=== PATIENT | female | born 1975 | race Caucasian/White ===

== ENCOUNTER 2019-04-28 12:08 | Emergency (ER) | payer MEDICAID, OTHER ==
[~2019-04-28] VITALS: Ht 170.2 cm; Wt 81.8 kg
[~2019-04-28 12:08] MED LIST: OLAN5TAB2 PO
[2019-04-28 13:28] VITALS: BP 123/77
[2019-04-28] MEDS ORDERED: OLANZapine 5 MG TABLET PO ONE (13:45)
[2019-04-28] MEDS ORDERED: OLAN10TA3 PO (13:49)
== END 2019-04-28 14:23 | disposition home or self-care (01) ==
LOC: EMS 12:09
DX: F20.9 Schizophrenia, unspecified (principal); F17.210 Nicotine dependence, cigarettes, uncomplicated; F31.9 Bipolar disorder, unspecified; Z76.0 Encounter for issue of repeat prescription

== ENCOUNTER 2019-07-26 19:00 | Inpatient (IN) | payer MEDICAID ==
[~2019-07-26] VITALS: Ht 170.2 cm; Wt 92.3 kg
[~2019-07-26 19:00] MED LIST changes: +OLAN10TA3 PO; -OLAN5TAB2 PO
[2019-07-26 21:00] VITALS: BP 125/71
[2019-07-26] MEDS ORDERED: LORazepam 2 MG TABLET PO PRN (21:15)
[2019-07-26] MEDS ORDERED: ZOLPIDEM TARTRATE 10 MG TABLET PO PRN (21:15)
[2019-07-26] MEDS ORDERED: HALOPERIDOL 5 MG TABLET PO PRN (21:15)
[2019-07-26 21:41] VITALS: BP 129/82
[2019-07-27 06:01] VITALS: BP 131/77
[2019-07-27 08:40] VITALS: BP 126/82
[2019-07-27] MEDS: OLANZapine 7.5 MG TABLET PO SCH (20:24)
[2019-07-28 08:20] VITALS: BP 117/66
[2019-07-28 16:12] VITALS: BP 128/72
[2019-07-28] MEDS: OLANZapine 7.5 MG TABLET PO SCH (20:29)
[2019-07-29 04:58] VITALS: BP 115/65
[2019-07-29 08:17] LABS: APPEARANCE,URINE CLOUDY (CLEAR); BILIRUBIN,URINE NEGATIVE (NEGATIVE); GLUCOSE, URINE (UA) NEGATIVE (NEGATIVE); KETONES,URINE NEGATIVE (NEGATIVE); LEUKOCYTE ESTERASE ,URINE NEGATIVE (NEGATIVE); NITRATE,URINE POSITIVE (NEGATIVE); OCCULT BLOOD,URINE NEGATIVE (NEGATIVE); PROTEIN,URINE NEGATIVE (NEGATIVE); UROBILINOGEN,URINE 0.2 mg/dL (<=1.0)
[2019-07-29 08:19] LABS: BASOPHILS % (AUTO) 0.2 % (0.0-2.0); EOSINOPHILS % (AUTO) 7.1 % (1.0-6.0); HEMATOCRIT 43.3 % (36-46); LYMPHOCYTES # (AUTO) 2.1 K/uL (1.0-4.8); LYMPHOCYTES % (AUTO) 18.1 % (22.0-44.0); MEAN CORPUSCULAR HEMOGLOBIN 30.1 pg (26.0-34.0); MEAN CORPUSCULAR HGB CONC 32.4 G/dL (31.0-37.0); MEAN CORPUSCULAR VOLUME 93 fL (80-100); MONOCYTES # (AUTO) 0.8 K/uL (0.1-1.0); MONOCYTES % (AUTO) 6.6 % (2.0-9.0); NEUTROPHILS # (AUTO) 7.9 K/uL (1.8-7.7); PLATELET COUNT (AUTO) 327 K/uL (150-450); RED BLOOD CELL COUNT(AUTO) 4.66 MIL/uL (4.00-5.20); RED CELL DISTRIBUTION WIDTH 13.4 % (11.5-14.5)
[2019-07-29 08:23] VITALS: BP 111/16
[2019-07-29 08:25] LABS: AMPHET/METH SCREEN,URINE NEGATIVE (NEGATIVE); BARBITURATE SCREEN, URINE NEGATIVE (NEGATIVE); BENZODIAZEPINES SCREEN,URINE NEGATIVE (NEGATIVE); CANNABINOID SCREEN,URINE NEGATIVE (NEGATIVE); COCAINE SCREEN,URINE NEGATIVE (NEGATIVE); METHADONE SCREEN, URINE NEGATIVE (NEGATIVE); OPIATE SCREEN,URINE NEGATIVE (NEGATIVE); PHENCYCLIDINE SCREEN,URINE NEGATIVE (NEGATIVE)
[2019-07-29 08:27] LABS: BACTERIA,URINE Moderate /HPF (None Seen); CALCIUM OXALATE CRYSTALS,UR Few /LPF (None Seen); RBC,URINE 0-2 /HPF (0-2); SQUAMOUS EPITHELIAL CELL,UR Few /LPF (None Seen)
[2019-07-29 08:57] LABS: ALANINE AMINOTRANSFERASE 19 U/L (12-78); ALBUMIN 3.2 g/dL (3.4-5.0); ALKALINE PHOSPHATASE 72 U/L (46-116); ANION GAP 5 mmol/L (8-16); ASPARTATE AMINOTRANSFERASE 10 U/L (15-37); BILIRUBIN,TOTAL 0.1 mg/dL (0.1-1.0); CALCIUM, TOTAL 8.9 mg/dL (8.8-10.5); CARBON DIOXIDE 29 mmol/L (22-29); CHLORIDE 105 mmol/L (98-107); CHOL/HDL RATIO 3.2 (3.9-5.7); CHOLESTEROL 96 mg/dL (131-200); CREATININE 0.72 mg/dL (0.60-1.30); FREE T4 (FREE THYROXINE) 1.24 ng/dL (0.76-1.46); GLOMERULAR FILTR. RATE CALC > 60 mL/min (>60); GLUCOSE,RANDOM 79 mg/dL (70-110); HCG,QUANTITATIVE < 1 mIU/mL (0-6); HDL CHOLESTEROL 30 mg/dL (40-60); LDL CHOL (CALC.) 52 mg/dL (0-130); SODIUM SERUM 139 mmol/L (136-145); THYROID STIMULATING HORMONE 1.69 uIU/mL (0.36-3.74); TOTAL PROTEIN, SERUM 6.3 g/dL (6.4-8.2); TRIGLYCERIDES 70 mg/dL (15-150); UREA NITROGEN, BLOOD 11 mg/dL (7-18)
[2019-07-29] MEDS: ARIPiprazole 10 MG TABLET PO SCH (09:00)
[2019-07-29 16:33] VITALS: BP 100/65
[2019-07-30 04:13] VITALS: BP 102/62
[2019-07-30] MEDS ORDERED: ARIP15TA2 PO (06:35)
[2019-07-30 08:25] VITALS: BP 118/72
[2019-07-30] MEDS: ARIPiprazole 10 MG TABLET PO SCH ×2 (08:27→09:30)
[2019-07-30] MEDS: CIPROFLOXACIN HCL 500 MG TABLET PO SCH ×2 (09:30→17:02)
[2019-07-30 16:46] VITALS: BP 107/60
[2019-07-31 02:58] VITALS: BP 120/63
[2019-07-31] MEDS: CIPROFLOXACIN HCL 500 MG TABLET PO SCH ×2 (08:52→17:23)
[2019-07-31] MEDS: ARIPiprazole 10 MG TABLET PO SCH (08:52)
[2019-07-31 17:01] VITALS: BP 108/61
[2019-08-01 05:06] VITALS: BP 101/68
[2019-08-01] MEDS: CIPROFLOXACIN HCL 500 MG TABLET PO SCH ×2 (08:25→17:00)
[2019-08-01] MEDS: ARIPiprazole 10 MG TABLET PO SCH (08:25)
[2019-08-01 13:59] VITALS: BP 111/73
[2019-08-02 05:19] VITALS: BP 100/72
[2019-08-02] MEDS: CIPROFLOXACIN HCL 500 MG TABLET PO SCH ×2 (08:58→16:55)
[2019-08-02] MEDS: ARIPiprazole 10 MG TABLET PO SCH (08:58)
[2019-08-03 05:07] VITALS: BP 120/72
[2019-08-03] MEDS: ARIPiprazole 10 MG TABLET PO SCH (08:28)
[2019-08-03] MEDS: CIPROFLOXACIN HCL 500 MG TABLET PO SCH ×2 (08:28→16:10)
[2019-08-03] MEDS ORDERED: ARIP10TA8 PO (14:14)
[2019-08-03] MEDS ORDERED: CIPROFLOXACIN HCL 500 MG TABLET PO ONE (14:15)
[2019-08-03 16:19] VITALS: BP 114/79
== END 2019-08-03 16:35 | disposition home or self-care (01) | DRG 750 ==
LOC: B3A 21:19
PROVIDERS: ADMIT Psychiatry & Neurology Psychiatry; ATTEND Psychiatry & Neurology Psychiatry
DX: F20.0 Paranoid schizophrenia (principal); Z59.0 Homelessness; E03.9 Hypothyroidism, unspecified; J45.909 Unspecified asthma, uncomplicated; K21.9 Gastro-esophageal reflux disease without esophagitis
CPT/HCPCS: 80307; 84439; 84443; 87086

== ENCOUNTER 2019-08-04 23:38 | Emergency (ER) | payer MEDICAID, OTHER ==
[~2019-08-04] VITALS: Ht 165.1 cm; Wt 72.7 kg
[~2019-08-04 23:38] MED LIST changes: +ARIP10TA8 PO; +ARIP15TA2 PO
[2019-08-05 01:11] LABS: BASOPHILS % (AUTO) 0.4 % (0.0-2.0); EOSINOPHILS % (AUTO) 3.2 % (1.0-6.0); HEMATOCRIT 44.1 % (36-46); HEMOGLOBIN 14.5 g/dL (12.0-16.0); LYMPHOCYTES # (AUTO) 2.3 K/uL (1.0-4.8); LYMPHOCYTES % (AUTO) 14.8 % (22.0-44.0); MEAN CORPUSCULAR HEMOGLOBIN 30.4 pg (26.0-34.0); MEAN CORPUSCULAR VOLUME 92 fL (80-100); MONOCYTES # (AUTO) 1.4 K/uL (0.1-1.0); MONOCYTES % (AUTO) 9.1 % (2.0-9.0); NEUTROPHILS # (AUTO) 11.5 K/uL (1.8-7.7); NEUTROPHILS % (AUTO) 72.5 % (40.0-70.0); PLATELET COUNT (AUTO) 343 K/uL (150-450); RED BLOOD CELL COUNT(AUTO) 4.79 MIL/uL (4.00-5.20); RED CELL DISTRIBUTION WIDTH 13.4 % (11.5-14.5)
[2019-08-05 01:20] LABS: ANION GAP 10 mmol/L (8-16); CALCIUM, TOTAL 9.4 mg/dL (8.8-10.5); CARBON DIOXIDE 27 mmol/L (22-29); CHLORIDE 101 mmol/L (98-107); CREATININE 0.75 mg/dL (0.60-1.30); GLOMERULAR FILTR. RATE CALC > 60 mL/min (>60); GLUCOSE,RANDOM 98 mg/dL (70-110); POTASSIUM 3.5 mmol/L (3.5-5.1); SODIUM SERUM 138 mmol/L (136-145); UREA NITROGEN, BLOOD 12 mg/dL (7-18)
[2019-08-05 01:31] LABS: ALANINE AMINOTRANSFERASE 51 U/L (12-78); ALBUMIN 4.1 g/dL (3.4-5.0); ALKALINE PHOSPHATASE 85 U/L (46-116); ASPARTATE AMINOTRANSFERASE 40 U/L (15-37); BILIRUBIN,TOTAL 0.7 mg/dL (0.1-1.0); HCG,QUANTITATIVE 1 mIU/mL (0-6); TOTAL PROTEIN, SERUM 8.1 g/dL (6.4-8.2)
[2019-08-05] MEDS ORDERED: ACETAMINOPHEN 500 MG TABLET PO ONE (01:45)
[2019-08-05 01:47] LABS: AMPHET/METH SCREEN,URINE NEGATIVE (NEGATIVE); BARBITURATE SCREEN, URINE NEGATIVE (NEGATIVE); BENZODIAZEPINES SCREEN,URINE NEGATIVE (NEGATIVE); CANNABINOID SCREEN,URINE NEGATIVE (NEGATIVE); COCAINE SCREEN,URINE NEGATIVE (NEGATIVE); METHADONE SCREEN, URINE NEGATIVE (NEGATIVE); OPIATE SCREEN,URINE NEGATIVE (NEGATIVE); PHENCYCLIDINE SCREEN,URINE NEGATIVE (NEGATIVE)
[2019-08-05 02:50] VITALS: BP 121/70
== END 2019-08-05 02:52 | disposition home or self-care (01) ==
LOC: EMS 23:40
DX: M54.5 Low back pain (principal); F31.9 Bipolar disorder, unspecified; F20.9 Schizophrenia, unspecified; F17.210 Nicotine dependence, cigarettes, uncomplicated
CPT/HCPCS: 36415; 80053; 80307; 84702; 85025; 99283; G0480

== ENCOUNTER 2020-04-18 11:08 | Inpatient (IN) | payer MEDICAID, OTHER ==
[~2020-04-18] VITALS: Ht 170.2 cm; Wt 91.3 kg
[2020-04-18 14:08] LABS: AMPHET/METH SCREEN,URINE NEGATIVE (NEGATIVE); BARBITURATE SCREEN, URINE NEGATIVE (NEGATIVE); BENZODIAZEPINES SCREEN,URINE NEGATIVE (NEGATIVE); CANNABINOID SCREEN,URINE NEGATIVE (NEGATIVE); COCAINE SCREEN,URINE NEGATIVE (NEGATIVE); METHADONE SCREEN, URINE NEGATIVE (NEGATIVE); OPIATE SCREEN,URINE NEGATIVE (NEGATIVE)
[2020-04-18 14:10] LABS: PHENCYCLIDINE SCREEN,URINE NEGATIVE (NEGATIVE)
[2020-04-18 15:54] LABS: BASOPHILS % (AUTO) 0.3 % (0.0-2.0); EOSINOPHILS % (AUTO) 1.6 % (1.0-6.0); HEMATOCRIT 38.6 % (36-46); HEMOGLOBIN 12.5 g/dL (12.0-16.0); LYMPHOCYTES # (AUTO) 1.3 K/uL (1.0-4.8); LYMPHOCYTES % (AUTO) 9.7 % (22.0-44.0); MEAN CORPUSCULAR HEMOGLOBIN 30.6 pg (26.0-34.0); MEAN CORPUSCULAR HGB CONC 32.5 G/dL (31.0-37.0); MEAN CORPUSCULAR VOLUME 94 fL (80-100); MONOCYTES # (AUTO) 0.8 K/uL (0.1-1.0); NEUTROPHILS # (AUTO) 11.2 K/uL (1.8-7.7); NEUTROPHILS % (AUTO) 82.4 % (40.0-70.0); PLATELET COUNT (AUTO) 276 K/uL (150-450); RED BLOOD CELL COUNT(AUTO) 4.09 MIL/uL (4.00-5.20); RED CELL DISTRIBUTION WIDTH 13.8 % (11.5-14.5)
[2020-04-18 16:19] LABS: ANION GAP 9 mmol/L (8-16); CALCIUM, TOTAL 8.7 mg/dL (8.8-10.5); CARBON DIOXIDE 24 mmol/L (22-29); CHLORIDE 105 mmol/L (98-107); CREATININE 0.65 mg/dL (0.60-1.30); GLOMERULAR FILTR. RATE CALC > 60 mL/min (>60); GLUCOSE,RANDOM 98 mg/dL (70-110); POTASSIUM 3.9 mmol/L (3.5-5.1); SODIUM SERUM 138 mmol/L (136-145); UREA NITROGEN, BLOOD 14 mg/dL (7-18)
[2020-04-18 16:24] LABS: APPEARANCE,URINE CLOUDY (CLEAR); BILIRUBIN,URINE NEGATIVE (NEGATIVE); GLUCOSE, URINE (UA) NEGATIVE (NEGATIVE); KETONES,URINE NEGATIVE (NEGATIVE); LEUKOCYTE ESTERASE ,URINE LARGE (NEGATIVE); NITRATE,URINE NEGATIVE (NEGATIVE); OCCULT BLOOD,URINE LARGE (NEGATIVE); PROTEIN,URINE NEGATIVE (NEGATIVE); UROBILINOGEN,URINE 0.2 mg/dL (<=1.0)
[2020-04-18 16:26] LABS: ALANINE AMINOTRANSFERASE 24 U/L (12-78); ALBUMIN 3.7 g/dL (3.4-5.0); ALKALINE PHOSPHATASE 77 U/L (46-116); ASPARTATE AMINOTRANSFERASE 13 U/L (15-37); BILIRUBIN,TOTAL 0.3 mg/dL (0.1-1.0); TOTAL PROTEIN, SERUM 7.5 g/dL (6.4-8.2)
[2020-04-18 16:31] LABS: WBC,URINE >100 /HPF (0-5)
[2020-04-18 16:32] LABS: BACTERIA,URINE Many /HPF (None Seen)
[2020-04-18 16:33] LABS: SQUAMOUS EPITHELIAL CELL,UR Moderate /LPF (None Seen)
[2020-04-18] MEDS ORDERED: CEPHALEXIN MONOHYDRATE 500 MG CAPSULE PO ONE (16:45)
[2020-04-18] MEDS ORDERED: ZOLPIDEM TARTRATE 10 MG TABLET PO PRN (17:00)
[2020-04-18] MEDS ORDERED: HALOPERIDOL 5 MG TABLET PO PRN (17:00)
[2020-04-18 17:19] LABS: COVID AG,FIA SOURCE NASOPHARYNGEAL
[2020-04-18] MEDS: HALOPERIDOL 5 MG TABLET PO SCH (20:59)
[2020-04-18] MEDS: LORazepam 2 MG TABLET PO PRN (21:00)
[2020-04-19 01:26] VITALS: BP 131/95
[2020-04-19] MEDS ORDERED: PNEUMOCOCCAL VACCINE POLYVALENT 0.5 ML VIAL [PPSV23] IM ONE (02:30)
[2020-04-19] MEDS ORDERED: INFLUENZA VIRUS VACCINE QVS 2020-21 (6MO+)/PF 60 MCG/0.5 ML SYRINGE IM ONE (02:30)
[2020-04-19] MEDS ORDERED: MAGNESIUM HYDROXIDE SUSPENSION 30 ML UDCUP PO PRN (09:00)
[2020-04-19] MEDS ORDERED: CloNIDine HCL 0.1 MG TABLET PO PRN (09:00)
[2020-04-19] MEDS ORDERED: MAG HYDROX/AL HYDROX/SIMETH ES 30 ML SUSPENSION UDCUP PO PRN (09:00)
[2020-04-19] MEDS ORDERED: BACITRACIN 28 GM OINTMENT TP PRN (09:00)
[2020-04-19] MEDS ORDERED: DOCUSATE SODIUM 100 MG CAPSULE PO PRN (09:00)
[2020-04-19] MEDS ORDERED: BENZOCAINE/MENTHOL LOZENGE PO PRN (09:00)
[2020-04-19] MEDS ORDERED: PETROLATUM,WHITE 28 GM JELLY TP PRN (09:00)
[2020-04-19] MEDS ORDERED: ONDANSETRON HCL 4 MG TABLET PO PRN (09:00)
[2020-04-19] MEDS ORDERED: LOPERAMIDE HCL 2 MG CAPSULE PO PRN (09:00)
[2020-04-19] MEDS ORDERED: ACETAMINOPHEN 325 MG TABLET PO PRN (09:00)
[2020-04-19] MEDS ORDERED: IBUPROFEN 600 MG TABLET PO PRN (09:00)
[2020-04-19] MEDS ORDERED: OMEPRAZOLE 20 MG CAPSULE PO PRN (09:00)
[2020-04-19] MEDS ORDERED: ALBUTEROL SULFATE HFA 90 MCG/PUFF 8 GM INHALER IH PRN (09:00)
[2020-04-19] MEDS: CEPHALEXIN MONOHYDRATE 500 MG CAPSULE PO SCH ×3 (12:01→16:09)
[2020-04-19] MEDS: LORazepam 2 MG TABLET PO PRN (12:21)
[2020-04-19 12:36] VITALS: BP 127/76
[2020-04-19 16:22] VITALS: BP 124/78
[2020-04-19] MEDS: HALOPERIDOL 5 MG TABLET PO SCH (20:21)
[2020-04-20 00:05] VITALS: BP 120/76
[2020-04-20 08:04] VITALS: BP 111/72
[2020-04-20] MEDS: CEPHALEXIN MONOHYDRATE 500 MG CAPSULE PO SCH ×3 (08:17→16:12)
[2020-04-20] MEDS: LORazepam 2 MG TABLET PO PRN ×2 (08:17→13:15)
[2020-04-20 16:04] VITALS: BP 126/65
[2020-04-20] MEDS: HALOPERIDOL 5 MG TABLET PO SCH (20:35)
[2020-04-21 00:40] VITALS: BP 120/72
[2020-04-21 08:00] VITALS: BP 108/63
[2020-04-21] MEDS: CEPHALEXIN MONOHYDRATE 500 MG CAPSULE PO SCH ×3 (08:05→15:48)
[2020-04-21] MEDS: LORazepam 2 MG TABLET PO PRN (08:05)
[2020-04-21] MEDS ORDERED: NICOTINE 21 MG/24 HOUR PATCH TD SCH (09:00)
[2020-04-21 16:10] VITALS: BP 130/78
[2020-04-21] MEDS ORDERED: HALO5TAB2 PO (17:02)
[2020-04-21] MEDS ORDERED: CEPH-582 PO (17:03)
== END 2020-04-21 17:36 | disposition home or self-care (01) | DRG 750 ==
LOC: EMS 11:08 → B3A 16:51
PROVIDERS: ADMIT Psychiatry & Neurology Psychiatry; ATTEND Psychiatry & Neurology Psychiatry
PROC: 3E0234Z Introduction of Serum, Toxoid and Vaccine into Muscle, Percutaneous Approach (ICD-10-PCS; principal; 2020-04-19)
PROC: 3E02340 Introduction of Influenza Vaccine into Muscle, Percutaneous Approach (ICD-10-PCS; 2020-04-19)
DX: F20.0 Paranoid schizophrenia (principal); R45.851 Suicidal ideations; Z59.0 Homelessness; F32.9 Major depressive disorder, single episode, unspecified; F41.0 Panic disorder [episodic paroxysmal anxiety]; N39.0 Urinary tract infection, site not specified; G47.00 Insomnia, unspecified; K59.00 Constipation, unspecified; F19.10 Other psychoactive substance abuse, uncomplicated; F17.210 Nicotine dependence, cigarettes, uncomplicated; F41.9 Anxiety disorder, unspecified; Z20.828 Contact with and (suspected) exposure to other viral communicable diseases; Z23 Encounter for immunization
CPT/HCPCS: 87070; 87426; 90686; G0480

== ENCOUNTER 2020-05-28 12:25 | Emergency (ER) | payer MEDICAID, OTHER ==
[~2020-05-28] VITALS: Ht 167.6 cm; Wt 59.1 kg
[~2020-05-28 12:25] MED LIST changes: -ARIP10TA8 PO; -ARIP15TA2 PO; +CEPH-582 PO; +HALO5TAB2 PO; -OLAN10TA3 PO
[2020-05-28 20:01] VITALS: BP 118/68
== END 2020-05-28 20:15 | disposition home or self-care (01) ==
LOC: EMS 12:25
DX: F20.9 Schizophrenia, unspecified (principal); Z59.0 Homelessness; Z20.822 Contact with and (suspected) exposure to COVID-19
CPT/HCPCS: 99283; U0003

== ENCOUNTER 2020-07-15 09:20 | Inpatient (IN) | payer MEDICAID, OTHER ==
[~2020-07-15] VITALS: Ht 167.6 cm; Wt 90.3 kg
[~2020-07-15 09:20] MED LIST changes: -CEPH-582 PO
[2020-07-15] MEDS ORDERED: HALOPERIDOL 5 MG TABLET PO ONE (10:00)
[2020-07-15] MEDS ORDERED: LORazepam 1 MG TABLET PO ONE (10:30)
[2020-07-15 10:36] LABS: BASOPHILS % (AUTO) 0.4 % (0.0-2.0); EOSINOPHILS % (AUTO) 4.1 % (1.0-6.0); HEMATOCRIT 40.8 % (36-46); HEMOGLOBIN 13.7 g/dL (12.0-16.0); LYMPHOCYTES # (AUTO) 1.5 K/uL (1.0-4.8); MEAN CORPUSCULAR HEMOGLOBIN 30.5 pg (26.0-34.0); MEAN CORPUSCULAR HGB CONC 33.5 G/dL (31.0-37.0); MEAN CORPUSCULAR VOLUME 91 fL (80-100); MONOCYTES % (AUTO) 6.6 % (2.0-9.0); NEUTROPHILS # (AUTO) 11.5 K/uL (1.8-7.7); NEUTROPHILS % (AUTO) 78.9 % (40.0-70.0); PLATELET COUNT (AUTO) 323 K/uL (150-450); RED BLOOD CELL COUNT(AUTO) 4.49 MIL/uL (4.00-5.20); RED CELL DISTRIBUTION WIDTH 13.9 % (11.5-14.5)
[2020-07-15 10:47] LABS: ANION GAP 12 mmol/L (8-16); CALCIUM, TOTAL 8.6 mg/dL (8.8-10.5); CARBON DIOXIDE 25 mmol/L (22-29); CHLORIDE 102 mmol/L (98-107); CREATININE 0.68 mg/dL (0.60-1.30); GLOMERULAR FILTR. RATE CALC > 60 mL/min (>60); GLUCOSE,RANDOM 96 mg/dL (70-110); POTASSIUM 3.4 mmol/L (3.5-5.1); SODIUM SERUM 139 mmol/L (136-145); UREA NITROGEN, BLOOD 16 mg/dL (7-18)
[2020-07-15 10:47] LABS: COVID AG,FIA SOURCE NASOPHARYNGEAL
[2020-07-15 10:53] LABS: ALANINE AMINOTRANSFERASE 28 U/L (12-78); ALBUMIN 3.9 g/dL (3.4-5.0); ALKALINE PHOSPHATASE 77 U/L (46-116); ASPARTATE AMINOTRANSFERASE 14 U/L (15-37); BILIRUBIN,TOTAL 0.4 mg/dL (0.1-1.0); TOTAL PROTEIN, SERUM 8.2 g/dL (6.4-8.2)
[2020-07-15 17:24] VITALS: BP 102/60
[2020-07-15] MEDS: HALOPERIDOL 5 MG TABLET PO SCH (20:16)
[2020-07-15] MEDS ORDERED: -PHARMACY VACCINE NOTE- MISC ONE (21:15)
[2020-07-16 06:11] VITALS: BP 106/62
[2020-07-16] MEDS ORDERED: DOCUSATE SODIUM 100 MG CAPSULE PO PRN (06:15)
[2020-07-16] MEDS ORDERED: ACETAMINOPHEN 325 MG TABLET PO PRN (06:15)
[2020-07-16] MEDS ORDERED: IBUPROFEN 600 MG TABLET PO PRN (06:15)
[2020-07-16] MEDS ORDERED: OMEPRAZOLE 20 MG CAPSULE PO PRN (06:15)
[2020-07-16] MEDS ORDERED: PETROLATUM,WHITE 28 GM JELLY TP PRN (06:15)
[2020-07-16] MEDS ORDERED: ONDANSETRON HCL 4 MG TABLET PO PRN (06:15)
[2020-07-16] MEDS ORDERED: ALBUTEROL SULFATE HFA 90 MCG/PUFF 8 GM INHALER IH PRN (06:15)
[2020-07-16] MEDS ORDERED: BENZOCAINE/MENTHOL LOZENGE PO PRN (06:15)
[2020-07-16] MEDS ORDERED: LOPERAMIDE HCL 2 MG CAPSULE PO PRN (06:15)
[2020-07-16] MEDS ORDERED: CloNIDine HCL 0.1 MG TABLET PO PRN (06:15)
[2020-07-16] MEDS ORDERED: BACITRACIN 28 GM OINTMENT TP PRN (06:15)
[2020-07-16] MEDS ORDERED: POTASSIUM CHLORIDE 20 MEQ ER TABLET PO ONE (06:15)
[2020-07-16] MEDS: ZINC OXIDE 16% PASTE 57 GM TUBE TP SCH ×2 (09:00→17:00)
[2020-07-16 10:26] VITALS: BP 129/66
[2020-07-16 16:36] VITALS: BP 103/64
[2020-07-16] MEDS: HALOPERIDOL 5 MG TABLET PO SCH (20:21)
[2020-07-17 00:38] VITALS: BP 104/62
[2020-07-17] MEDS: ZINC OXIDE 16% PASTE 57 GM TUBE TP SCH ×2 (08:49→16:32)
[2020-07-17] MEDS: HALOPERIDOL 5 MG TABLET PO SCH (20:17)
[2020-07-18 00:23] VITALS: BP 118/72
[2020-07-18] MEDS: MAG HYDROX/AL HYDROX/SIMETH ES 30 ML SUSPENSION UDCUP PO PRN ×2 (01:03→09:49)
[2020-07-18 08:22] VITALS: BP 107/72
[2020-07-18] MEDS: ZINC OXIDE 16% PASTE 57 GM TUBE TP SCH ×2 (09:28→16:38)
[2020-07-18 16:24] VITALS: BP 129/91
[2020-07-18] MEDS: LORazepam 2 MG TABLET PO PRN (16:38)
[2020-07-18] MEDS: HALOPERIDOL 5 MG TABLET PO PRN (16:39)
[2020-07-18] MEDS: MAGNESIUM HYDROXIDE SUSPENSION 30 ML UDCUP PO PRN (16:40)
[2020-07-18] MEDS: ZOLPIDEM TARTRATE 10 MG TABLET PO PRN (20:48)
[2020-07-18] MEDS: HALOPERIDOL 5 MG TABLET PO SCH (20:48)
[2020-07-19 06:20] VITALS: BP 107/59
[2020-07-19 09:09] LABS: BASOPHILS % (AUTO) 0.5 % (0.0-2.0); EOSINOPHILS % (AUTO) 7.7 % (1.0-6.0); HEMOGLOBIN 12.1 g/dL (12.0-16.0); LYMPHOCYTES # (AUTO) 1.3 K/uL (1.0-4.8); LYMPHOCYTES % (AUTO) 16.5 % (22.0-44.0); MEAN CORPUSCULAR HEMOGLOBIN 30.4 pg (26.0-34.0); MEAN CORPUSCULAR HGB CONC 33.5 G/dL (31.0-37.0); MEAN CORPUSCULAR VOLUME 91 fL (80-100); MONOCYTES # (AUTO) 0.7 K/uL (0.1-1.0); MONOCYTES % (AUTO) 9.1 % (2.0-9.0); NEUTROPHILS # (AUTO) 5.3 K/uL (1.8-7.7); NEUTROPHILS % (AUTO) 66.2 % (40.0-70.0); PLATELET COUNT (AUTO) 245 K/uL (150-450); RED BLOOD CELL COUNT(AUTO) 3.96 MIL/uL (4.00-5.20); RED CELL DISTRIBUTION WIDTH 13.8 % (11.5-14.5)
[2020-07-19] MEDS: LORazepam 2 MG TABLET PO PRN ×2 (09:26→16:14)
[2020-07-19] MEDS: HALOPERIDOL 5 MG TABLET PO PRN (09:26)
[2020-07-19 09:36] LABS: ANION GAP 7 mmol/L (8-16); CALCIUM, TOTAL 8.6 mg/dL (8.8-10.5); CARBON DIOXIDE 25 mmol/L (22-29); CHLORIDE 107 mmol/L (98-107); CHOL/HDL RATIO 2.3 (3.9-5.7); CHOLESTEROL 89 mg/dL (131-200); CREATININE 0.58 mg/dL (0.60-1.30); GLOMERULAR FILTR. RATE CALC > 60 mL/min (>60); GLUCOSE,RANDOM 88 mg/dL (70-110); HDL CHOLESTEROL 39 mg/dL (40-60); LDL CHOL (CALC.) 42 mg/dL (0-130); POTASSIUM 3.8 mmol/L (3.5-5.1); SODIUM SERUM 139 mmol/L (136-145); THYROID STIMULATING HORMONE 2.06 uIU/mL (0.36-3.74); TRIGLYCERIDES 41 mg/dL (15-150); UREA NITROGEN, BLOOD 9 mg/dL (7-18)
[2020-07-19 10:10] VITALS: BP 112/73
[2020-07-19] MEDS: ZINC OXIDE 16% PASTE 57 GM TUBE TP SCH ×2 (14:06→16:13)
[2020-07-19] MEDS: MAG HYDROX/AL HYDROX/SIMETH ES 30 ML SUSPENSION UDCUP PO PRN (15:26)
[2020-07-19 16:18] VITALS: BP 128/76
[2020-07-19] MEDS: HALOPERIDOL 5 MG TABLET PO SCH (20:11)
[2020-07-19] MEDS: ZOLPIDEM TARTRATE 10 MG TABLET PO PRN (20:13)
[2020-07-20 04:43] VITALS: BP 110/72
[2020-07-20 08:18] LABS: COVID AG,FIA SOURCE NASOPHARYNGEAL
[2020-07-20 08:43] VITALS: BP 107/69
[2020-07-20] MEDS: ZINC OXIDE 16% PASTE 57 GM TUBE TP SCH ×2 (08:54→16:20)
[2020-07-20] MEDS: MAGNESIUM HYDROXIDE SUSPENSION 30 ML UDCUP PO PRN (10:37)
[2020-07-20 16:53] VITALS: BP 102/57
[2020-07-20] MEDS: HALOPERIDOL 5 MG TABLET PO SCH (20:05)
[2020-07-21 00:58] VITALS: BP 121/63
[2020-07-21] MEDS: ZINC OXIDE 16% PASTE 57 GM TUBE TP SCH ×2 (08:26→17:42)
[2020-07-21] MEDS: MULTIVITAMINS WITH MINERALS, THERAPEUTIC TABLET PO SCH (08:26)
[2020-07-21 08:58] VITALS: BP 100/60
[2020-07-21 16:31] VITALS: BP 130/84
[2020-07-21] MEDS: HALOPERIDOL 5 MG TABLET PO SCH (20:29)
[2020-07-22 06:36] VITALS: BP 102/73
[2020-07-22 08:36] VITALS: BP 110/61
[2020-07-22] MEDS: MULTIVITAMINS WITH MINERALS, THERAPEUTIC TABLET PO SCH (09:01)
[2020-07-22] MEDS: ZINC OXIDE 16% PASTE 57 GM TUBE TP SCH ×2 (09:01→17:21)
[2020-07-22 16:33] VITALS: BP 100/65
[2020-07-22] MEDS: HALOPERIDOL 10 MG TABLET PO SCH (20:09)
[2020-07-23 06:13] VITALS: BP 101/64
[2020-07-23] MEDS: MULTIVITAMINS WITH MINERALS, THERAPEUTIC TABLET PO SCH (08:32)
[2020-07-23] MEDS: ZINC OXIDE 16% PASTE 57 GM TUBE TP SCH ×2 (08:32→18:01)
[2020-07-23 08:54] VITALS: BP 102/64
[2020-07-23 17:56] VITALS: BP 103/70
[2020-07-23] MEDS: HALOPERIDOL 10 MG TABLET PO SCH (20:22)
[2020-07-23] MEDS: ZOLPIDEM TARTRATE 10 MG TABLET PO PRN (23:18)
[2020-07-24 00:36] VITALS: BP 130/82
[2020-07-24 08:31] VITALS: BP 109/64
[2020-07-24] MEDS: ZINC OXIDE 16% PASTE 57 GM TUBE TP SCH ×2 (09:14→16:39)
[2020-07-24] MEDS: MULTIVITAMINS WITH MINERALS, THERAPEUTIC TABLET PO SCH (09:14)
[2020-07-24] MEDS: MAGNESIUM HYDROXIDE SUSPENSION 30 ML UDCUP PO PRN (13:56)
[2020-07-24] MEDS: LORazepam 2 MG TABLET PO PRN (15:37)
[2020-07-24 16:21] VITALS: BP 116/68
[2020-07-24] MEDS: HALOPERIDOL 5 MG TABLET PO PRN (17:54)
[2020-07-24] MEDS: HALOPERIDOL 10 MG TABLET PO SCH (21:13)
[2020-07-24] MEDS: ZOLPIDEM TARTRATE 10 MG TABLET PO PRN (21:14)
[2020-07-25 00:16] VITALS: BP 114/76
[2020-07-25 08:31] VITALS: BP 124/68
[2020-07-25] MEDS: HALOPERIDOL 5 MG TABLET PO PRN ×2 (08:59→16:24)
[2020-07-25] MEDS: MULTIVITAMINS WITH MINERALS, THERAPEUTIC TABLET PO SCH (08:59)
[2020-07-25] MEDS: ZINC OXIDE 16% PASTE 57 GM TUBE TP SCH ×2 (09:15→16:24)
[2020-07-25 16:08] VITALS: BP 119/69
[2020-07-25] MEDS: HALOPERIDOL 10 MG TABLET PO SCH (20:17)
[2020-07-26 01:09] VITALS: BP 110/74
[2020-07-26 08:11] VITALS: BP 121/68
[2020-07-26] MEDS: HALOPERIDOL 5 MG TABLET PO PRN (08:54)
[2020-07-26] MEDS: ZINC OXIDE 16% PASTE 57 GM TUBE TP SCH (08:54)
[2020-07-26] MEDS: MULTIVITAMINS WITH MINERALS, THERAPEUTIC TABLET PO SCH (08:54)
== END 2020-07-26 16:45 | disposition home or self-care (01) | DRG 750 ==
LOC: EMS 09:35 → B2S 12:11 → B3A 07-24 14:17
PROVIDERS: ADMIT Psychiatry & Neurology Psychiatry; ATTEND Psychiatry & Neurology Psychiatry
DX: F20.0 Paranoid schizophrenia (principal); Z20.822 Contact with and (suspected) exposure to COVID-19; F41.8 Other specified anxiety disorders; J45.909 Unspecified asthma, uncomplicated; N39.0 Urinary tract infection, site not specified; F17.210 Nicotine dependence, cigarettes, uncomplicated; E87.6 Hypokalemia; K59.00 Constipation, unspecified; G47.00 Insomnia, unspecified; F19.10 Other psychoactive substance abuse, uncomplicated; Z71.51 Drug abuse counseling and surveillance of drug abuser; Z72.89 Other problems related to lifestyle; Z59.0 Homelessness; Z71.6 Tobacco abuse counseling
CPT/HCPCS: 84443; 87426; 99285; G0480

== ENCOUNTER 2020-08-19 09:53 | Inpatient (IN) | payer MEDICAID, OTHER ==
[~2020-08-19] VITALS: Ht 177.8 cm; Wt 94.3 kg
[2020-08-19 10:32] LABS: COVID AG,FIA SOURCE NASOPHARYNGEAL
[2020-08-19 16:08] VITALS: BP 118/77
[2020-08-20 00:23] VITALS: BP 111/73
[2020-08-20] MEDS ORDERED: ACETAMINOPHEN 325 MG TABLET PO PRN (07:45)
[2020-08-20] MEDS ORDERED: BENZOCAINE/MENTHOL LOZENGE PO PRN (07:45)
[2020-08-20] MEDS ORDERED: IBUPROFEN 600 MG TABLET PO PRN (07:45)
[2020-08-20] MEDS ORDERED: CloNIDine HCL 0.1 MG TABLET PO PRN (07:45)
[2020-08-20] MEDS ORDERED: LOPERAMIDE HCL 2 MG CAPSULE PO PRN (07:45)
[2020-08-20] MEDS ORDERED: MAG HYDROX/AL HYDROX/SIMETH ES 30 ML SUSPENSION UDCUP PO PRN (07:45)
[2020-08-20] MEDS ORDERED: DOCUSATE SODIUM 100 MG CAPSULE PO PRN (07:45)
[2020-08-20] MEDS ORDERED: PETROLATUM,WHITE 28 GM JELLY TP PRN (07:45)
[2020-08-20] MEDS ORDERED: ALBUTEROL SULFATE HFA 90 MCG/PUFF 8 GM INHALER IH PRN (07:45)
[2020-08-20] MEDS ORDERED: ONDANSETRON HCL 4 MG TABLET PO PRN (07:45)
[2020-08-20] MEDS ORDERED: OMEPRAZOLE 20 MG CAPSULE PO PRN (07:45)
[2020-08-20] MEDS ORDERED: BACITRACIN 28 GM OINTMENT TP PRN (07:45)
[2020-08-20 07:57] LABS: APPEARANCE,URINE TURBID (CLEAR); GLUCOSE, URINE (UA) NEGATIVE (NEGATIVE); KETONES,URINE >=80 mg/dL (NEGATIVE); LEUKOCYTE ESTERASE ,URINE LARGE (NEGATIVE); NITRATE,URINE NEGATIVE (NEGATIVE); OCCULT BLOOD,URINE LARGE (NEGATIVE); PROTEIN,URINE SEE CONFIRM (NEGATIVE)
[2020-08-20 08:00] LABS: AMPHET/METH SCREEN,URINE NEGATIVE (NEGATIVE); BARBITURATE SCREEN, URINE NEGATIVE (NEGATIVE); BENZODIAZEPINES SCREEN,URINE NEGATIVE (NEGATIVE); CANNABINOID SCREEN,URINE NEGATIVE (NEGATIVE); COCAINE SCREEN,URINE NEGATIVE (NEGATIVE); METHADONE SCREEN, URINE NEGATIVE (NEGATIVE); OPIATE SCREEN,URINE NEGATIVE (NEGATIVE); PHENCYCLIDINE SCREEN,URINE NEGATIVE (NEGATIVE)
[2020-08-20 08:02] LABS: BILIRUBIN,URINE PRELIM. POSITIVE (NEGATIVE)
[2020-08-20 08:27] VITALS: BP 116/72
[2020-08-20 08:38] LABS: AMORPHOUS SEDIMENT,UR Many /LPF (None Seen); BACTERIA,URINE Many /HPF (None Seen); SULFOSALICYLIC ACID,URINE 3+ (Negative)
[2020-08-20] MEDS: HALOPERIDOL 5 MG TABLET PO SCH (20:05)
[2020-08-20] MEDS: NITROFURANTOIN/NITROFURAN MAC 100 MG CAPSULE [MACROBID] PO SCH (20:30)
[2020-08-21 01:49] VITALS: BP 122/76
[2020-08-21 07:35] LABS: BASOPHILS % (AUTO) 0.5 % (0.0-2.0); EOSINOPHILS % (AUTO) 4.7 % (1.0-6.0); HEMATOCRIT 41.2 % (36-46); HEMOGLOBIN 13.8 g/dL (12.0-16.0); LYMPHOCYTES # (AUTO) 1.6 K/uL (1.0-4.8); LYMPHOCYTES % (AUTO) 17.6 % (22.0-44.0); MEAN CORPUSCULAR HEMOGLOBIN 30.5 pg (26.0-34.0); MEAN CORPUSCULAR HGB CONC 33.5 G/dL (31.0-37.0); MEAN CORPUSCULAR VOLUME 91 fL (80-100); MONOCYTES # (AUTO) 0.7 K/uL (0.1-1.0); MONOCYTES % (AUTO) 7.9 % (2.0-9.0); NEUTROPHILS # (AUTO) 6.4 K/uL (1.8-7.7); NEUTROPHILS % (AUTO) 69.3 % (40.0-70.0); PLATELET COUNT (AUTO) 295 K/uL (150-450); RED BLOOD CELL COUNT(AUTO) 4.53 MIL/uL (4.00-5.20); RED CELL DISTRIBUTION WIDTH 13.3 % (11.5-14.5)
[2020-08-21 07:40] LABS: HEMOGLOBIN A1C 4.8 % (3.8-5.6)
[2020-08-21 07:54] LABS: ALANINE AMINOTRANSFERASE 20 U/L (12-78); ALBUMIN 3.8 g/dL (3.4-5.0); ALKALINE PHOSPHATASE 79 U/L (46-116); ANION GAP 15 mmol/L (8-16); ASPARTATE AMINOTRANSFERASE 11 U/L (15-37); BILIRUBIN,TOTAL 0.3 mg/dL (0.1-1.0); CALCIUM, TOTAL 8.9 mg/dL (8.8-10.5); CARBON DIOXIDE 20 mmol/L (22-29); CHLORIDE 102 mmol/L (98-107); CHOL/HDL RATIO 3.2 (3.9-5.7); CHOLESTEROL 104 mg/dL (131-200); CREATININE 0.76 mg/dL (0.60-1.30); FREE T4 (FREE THYROXINE) 1.28 ng/dL (0.76-1.46); GLOMERULAR FILTR. RATE CALC > 60 mL/min (>60); GLUCOSE,RANDOM 116 mg/dL (70-110); HDL CHOLESTEROL 33 mg/dL (40-60); LDL CHOL (CALC.) 53 mg/dL (0-130); POTASSIUM 3.7 mmol/L (3.5-5.1); SODIUM SERUM 137 mmol/L (136-145); THYROID STIMULATING HORMONE 1.76 uIU/mL (0.36-3.74); TOTAL PROTEIN, SERUM 7.6 g/dL (6.4-8.2); TRIGLYCERIDES 90 mg/dL (15-150); UREA NITROGEN, BLOOD 18 mg/dL (7-18)
[2020-08-21 08:14] VITALS: BP 122/71
[2020-08-21] MEDS: NITROFURANTOIN/NITROFURAN MAC 100 MG CAPSULE [MACROBID] PO SCH ×2 (08:36→15:58)
[2020-08-21 16:09] VITALS: BP 100/63
[2020-08-21] MEDS: LORazepam 2 MG TABLET PO PRN (16:47)
[2020-08-21] MEDS: HALOPERIDOL 5 MG TABLET PO SCH (20:47)
[2020-08-22 04:51] VITALS: BP 116/68
[2020-08-22 08:15] VITALS: BP 102/63
[2020-08-22] MEDS: NITROFURANTOIN/NITROFURAN MAC 100 MG CAPSULE [MACROBID] PO SCH ×2 (08:43→16:27)
[2020-08-22] MEDS: MUPIROCIN CALCIUM 2% 22 GM OINTMENT NASAL SCH (16:28)
[2020-08-22 17:11] VITALS: BP 122/69
[2020-08-22] MEDS: HALOPERIDOL 5 MG TABLET PO SCH (20:28)
[2020-08-23 06:03] VITALS: BP 120/68
[2020-08-23] MEDS: MUPIROCIN CALCIUM 2% 22 GM OINTMENT NASAL SCH ×2 (08:38→16:24)
[2020-08-23] MEDS: AMOX TR/POT CLAV 500 MG/125 MG TABLET PO SCH ×2 (08:39→16:24)
[2020-08-23] MEDS: LORazepam 2 MG TABLET PO PRN ×2 (08:46→17:21)
[2020-08-23 16:11] VITALS: BP 111/68
[2020-08-23] MEDS: HALOPERIDOL 5 MG TABLET PO SCH ×2 (17:21→20:33)
[2020-08-23] MEDS: ZOLPIDEM TARTRATE 10 MG TABLET PO PRN (20:33)
[2020-08-24 00:58] VITALS: BP 116/64
[2020-08-24] MEDS: HALOPERIDOL 5 MG TABLET PO PRN (02:14)
[2020-08-24] MEDS: LORazepam 2 MG TABLET PO PRN ×2 (02:14→08:00)
[2020-08-24] MEDS: MUPIROCIN CALCIUM 2% 22 GM OINTMENT NASAL SCH ×2 (08:00→17:04)
[2020-08-24] MEDS: AMOX TR/POT CLAV 500 MG/125 MG TABLET PO SCH ×2 (08:00→17:04)
[2020-08-24 08:26] VITALS: BP 120/93
[2020-08-24 17:07] VITALS: BP 105/68
[2020-08-24] MEDS: MAGNESIUM HYDROXIDE SUSPENSION 30 ML UDCUP PO PRN (17:29)
[2020-08-24] MEDS: HALOPERIDOL 5 MG TABLET PO SCH (20:59)
[2020-08-25 01:51] VITALS: BP 102/73
[2020-08-25] MEDS: MUPIROCIN CALCIUM 2% 22 GM OINTMENT NASAL SCH ×2 (08:13→16:02)
[2020-08-25] MEDS: LORazepam 2 MG TABLET PO PRN ×2 (08:13→16:01)
[2020-08-25] MEDS: AMOX TR/POT CLAV 500 MG/125 MG TABLET PO SCH ×2 (08:13→16:01)
[2020-08-25 08:17] VITALS: BP 118/79
[2020-08-25] MEDS: HALOPERIDOL 5 MG TABLET PO PRN ×2 (09:09→16:01)
[2020-08-25 16:35] VITALS: BP 101/63
[2020-08-25] MEDS: HALOPERIDOL 5 MG TABLET PO SCH (20:02)
[2020-08-25] MEDS: ZOLPIDEM TARTRATE 10 MG TABLET PO PRN (20:02)
[2020-08-26 00:19] VITALS: BP 114/61
[2020-08-26] MEDS: MUPIROCIN CALCIUM 2% 22 GM OINTMENT NASAL SCH ×2 (08:01→16:48)
[2020-08-26 08:05] VITALS: BP 110/69
[2020-08-26] MEDS: AMOX TR/POT CLAV 500 MG/125 MG TABLET PO SCH ×2 (08:09→16:48)
[2020-08-26] MEDS: LORazepam 2 MG TABLET PO PRN (08:22)
[2020-08-26 16:44] VITALS: BP 112/68
[2020-08-26] MEDS: HALOPERIDOL 5 MG TABLET PO SCH (20:36)
[2020-08-27 02:12] VITALS: BP 102/73
[2020-08-27 08:29] VITALS: BP 122/69
[2020-08-27] MEDS: AMOX TR/POT CLAV 500 MG/125 MG TABLET PO SCH ×2 (11:17→17:15)
[2020-08-27] MEDS: MUPIROCIN CALCIUM 2% 22 GM OINTMENT NASAL SCH (11:18)
[2020-08-27 16:28] VITALS: BP 126/79
[2020-08-27] MEDS: HALOPERIDOL 5 MG TABLET PO SCH (20:36)
[2020-08-28 00:23] VITALS: BP 119/74
[2020-08-28] MEDS: LORazepam 2 MG TABLET PO PRN ×2 (08:03→17:21)
[2020-08-28] MEDS: AMOX TR/POT CLAV 500 MG/125 MG TABLET PO SCH ×2 (08:03→16:41)
[2020-08-28 08:16] VITALS: BP 118/83
[2020-08-28] MEDS: HALOPERIDOL 5 MG TABLET PO PRN (09:30)
[2020-08-28 16:13] VITALS: BP 127/60
[2020-08-28 16:17] VITALS: BP 118/79
[2020-08-28] MEDS: HALOPERIDOL 5 MG TABLET PO SCH (20:02)
[2020-08-28] MEDS: ZOLPIDEM TARTRATE 10 MG TABLET PO PRN (20:03)
[2020-08-29 01:09] VITALS: BP 116/71
[2020-08-29] MEDS: AMOX TR/POT CLAV 500 MG/125 MG TABLET PO SCH ×2 (08:08→17:09)
[2020-08-29] MEDS: LORazepam 2 MG TABLET PO PRN (08:09)
[2020-08-29 08:23] VITALS: BP 123/76
[2020-08-29] MEDS: HALOPERIDOL 5 MG TABLET PO PRN ×2 (12:18→17:09)
[2020-08-29 16:36] VITALS: BP 101/56
[2020-08-29] MEDS: HALOPERIDOL 5 MG TABLET PO SCH (20:24)
[2020-08-29] MEDS: ZOLPIDEM TARTRATE 10 MG TABLET PO PRN (21:06)
[2020-08-30 00:15] VITALS: BP 112/67
[2020-08-30 08:32] VITALS: BP 118/74
[2020-08-30 16:10] VITALS: BP 110/66
[2020-08-30] MEDS: HALOPERIDOL 5 MG TABLET PO SCH (20:14)
[2020-08-31 00:59] VITALS: BP 106/73
[2020-08-31 08:32] VITALS: BP 106/73
[2020-08-31] MEDS: HALOPERIDOL 5 MG TABLET PO PRN (11:00)
[2020-08-31 16:59] VITALS: BP 116/73
[2020-08-31] MEDS: HALOPERIDOL 5 MG TABLET PO SCH (20:22)
[2020-09-01 02:09] VITALS: BP 112/76
[2020-09-01] MEDS: HALOPERIDOL 5 MG TABLET PO PRN (08:00)
[2020-09-01 08:21] VITALS: BP 104/56
[2020-09-01 16:36] VITALS: BP 134/82
[2020-09-01] MEDS: HALOPERIDOL 5 MG TABLET PO SCH (20:14)
[2020-09-01] MEDS: ZOLPIDEM TARTRATE 10 MG TABLET PO PRN (20:52)
[2020-09-02 01:21] VITALS: BP 103/64
[2020-09-02] MEDS: HALOPERIDOL 5 MG TABLET PO PRN (08:10)
[2020-09-02 08:20] VITALS: BP 121/78
[2020-09-02 09:14] LABS: BILIRUBIN,URINE NEGATIVE (NEGATIVE); GLUCOSE, URINE (UA) NEGATIVE (NEGATIVE); KETONES,URINE NEGATIVE (NEGATIVE); LEUKOCYTE ESTERASE ,URINE MODERATE (NEGATIVE); NITRATE,URINE NEGATIVE (NEGATIVE); OCCULT BLOOD,URINE NEGATIVE (NEGATIVE); PROTEIN,URINE NEGATIVE (NEGATIVE); UROBILINOGEN,URINE 0.2 mg/dL (<=1.0)
[2020-09-02 09:17] LABS: APPEARANCE,URINE SLIGHTLY CLOUDY (CLEAR)
[2020-09-02 09:59] LABS: BACTERIA,URINE None Seen /HPF (None Seen); RBC,URINE None Seen /HPF (0-2); SQUAMOUS EPITHELIAL CELL,UR Few /LPF (None Seen)
[2020-09-02 16:26] VITALS: BP 119/66
[2020-09-02] MEDS: BENZTROPINE MESYLATE 1 MG TABLET PO SCH (16:44)
[2020-09-02] MEDS: HALOPERIDOL 5 MG TABLET PO SCH (20:39)
[2020-09-02] MEDS: ZOLPIDEM TARTRATE 10 MG TABLET PO PRN (22:20)
[2020-09-03 00:54] VITALS: BP 110/62
[2020-09-03] MEDS: BENZTROPINE MESYLATE 1 MG TABLET PO SCH ×2 (08:05→16:21)
[2020-09-03] MEDS: HALOPERIDOL 5 MG TABLET PO PRN (08:05)
[2020-09-03 08:32] VITALS: BP 131/75
[2020-09-03] MEDS: PHENAZOPYRIDINE HCL 100 MG TABLET PO SCH ×2 (10:00→16:21)
[2020-09-03 17:23] VITALS: BP 107/64
[2020-09-03] MEDS: HALOPERIDOL 5 MG TABLET PO SCH (20:19)
[2020-09-03] MEDS: ZOLPIDEM TARTRATE 10 MG TABLET PO PRN (20:30)
[2020-09-04 01:08] VITALS: BP 100/68
[2020-09-04 08:00] VITALS: BP 112/68
[2020-09-04] MEDS: HALOPERIDOL 5 MG TABLET PO PRN (08:57)
[2020-09-04] MEDS: BENZTROPINE MESYLATE 1 MG TABLET PO SCH ×2 (08:57→16:48)
[2020-09-04] MEDS: PHENAZOPYRIDINE HCL 100 MG TABLET PO SCH ×2 (08:57→16:48)
[2020-09-04 16:21] VITALS: BP 102/62
[2020-09-04] MEDS: HALOPERIDOL 5 MG TABLET PO SCH (20:03)
[2020-09-04] MEDS: ZOLPIDEM TARTRATE 10 MG TABLET PO PRN (20:16)
[2020-09-05 04:33] VITALS: BP 110/64
[2020-09-05] MEDS: PHENAZOPYRIDINE HCL 100 MG TABLET PO SCH ×2 (08:39→16:54)
[2020-09-05] MEDS: BENZTROPINE MESYLATE 1 MG TABLET PO SCH ×2 (08:39→16:54)
[2020-09-05] MEDS: HALOPERIDOL 5 MG TABLET PO PRN (08:39)
[2020-09-05 08:40] VITALS: BP 107/60
[2020-09-05 16:25] VITALS: BP 105/62
[2020-09-05] MEDS: ZOLPIDEM TARTRATE 10 MG TABLET PO PRN (20:05)
[2020-09-05] MEDS: HALOPERIDOL 5 MG TABLET PO SCH (20:05)
[2020-09-06 00:29] VITALS: BP 102/64
[2020-09-06 08:28] VITALS: BP 103/60
[2020-09-06] MEDS: BENZTROPINE MESYLATE 1 MG TABLET PO SCH ×2 (08:38→16:40)
[2020-09-06] MEDS: HALOPERIDOL 5 MG TABLET PO PRN (08:38)
[2020-09-06] MEDS: PHENAZOPYRIDINE HCL 100 MG TABLET PO SCH (08:38)
[2020-09-06 16:23] VITALS: BP 114/66
[2020-09-06] MEDS: HALOPERIDOL 5 MG TABLET PO SCH (20:06)
[2020-09-06] MEDS: ZOLPIDEM TARTRATE 10 MG TABLET PO PRN (20:23)
[2020-09-07 00:52] VITALS: BP 111/71
[2020-09-07] MEDS: HALOPERIDOL 5 MG TABLET PO PRN (08:05)
[2020-09-07] MEDS: BENZTROPINE MESYLATE 1 MG TABLET PO SCH ×2 (08:05→16:24)
[2020-09-07 08:47] VITALS: BP 122/63
[2020-09-07 16:35] VITALS: BP 112/64
[2020-09-07] MEDS: HALOPERIDOL 5 MG TABLET PO SCH (20:32)
[2020-09-07] MEDS: ZOLPIDEM TARTRATE 10 MG TABLET PO PRN (20:32)
[2020-09-07] MEDS: AMOX TR/POT CLAV 500 MG/125 MG TABLET PO SCH (21:25)
[2020-09-08 02:15] VITALS: BP 110/72
[2020-09-08 08:20] VITALS: BP 120/66
[2020-09-08] MEDS: HALOPERIDOL 5 MG TABLET PO PRN (08:25)
[2020-09-08] MEDS: BENZTROPINE MESYLATE 1 MG TABLET PO SCH ×2 (08:25→16:11)
[2020-09-08] MEDS: AMOX TR/POT CLAV 500 MG/125 MG TABLET PO SCH ×2 (08:25→20:00)
[2020-09-08] MEDS: MAGNESIUM HYDROXIDE SUSPENSION 30 ML UDCUP PO PRN (14:26)
[2020-09-08 16:10] VITALS: BP 122/74
[2020-09-08] MEDS: ZOLPIDEM TARTRATE 10 MG TABLET PO PRN (20:01)
[2020-09-08] MEDS: HALOPERIDOL 5 MG TABLET PO SCH (20:01)
[2020-09-09 02:46] VITALS: BP 110/68
[2020-09-09] MEDS: BENZTROPINE MESYLATE 1 MG TABLET PO SCH (08:14)
[2020-09-09] MEDS: AMOX TR/POT CLAV 500 MG/125 MG TABLET PO SCH (08:14)
[2020-09-09 08:30] VITALS: BP 135/71
[2020-09-09] MEDS ORDERED: AMOX1TAB15 PO (13:14)
[2020-09-09] MEDS ORDERED: BENZ1TAB10 PO (13:14)
== END 2020-09-09 14:15 | disposition home or self-care (01) | DRG 750 ==
LOC: EMS 11:13 → B3A 11:44
PROVIDERS: ADMIT Psychiatry & Neurology Psychiatry; ATTEND Psychiatry & Neurology Psychiatry
DX: F20.0 Paranoid schizophrenia (principal); Z59.0 Homelessness; R45.851 Suicidal ideations; F17.210 Nicotine dependence, cigarettes, uncomplicated; F19.10 Other psychoactive substance abuse, uncomplicated; F31.9 Bipolar disorder, unspecified; F41.9 Anxiety disorder, unspecified; R82.90 Unspecified abnormal findings in urine; N39.0 Urinary tract infection, site not specified; G47.00 Insomnia, unspecified; K59.00 Constipation, unspecified; J45.909 Unspecified asthma, uncomplicated; Z20.822 Contact with and (suspected) exposure to COVID-19
CPT/HCPCS: 80053; 80061; 80307; 81001; 81002; 83036; 84439; 84443; 84703; 85025; 87077; 87081; 87086; 87186; 87426; 99285

== ENCOUNTER 2021-08-31 18:25 | Inpatient (IN) | payer MEDICAID, OTHER ==
[~2021-08-31] VITALS: Ht 165.1 cm; Wt 83.9 kg
[~2021-08-31 18:25] MED LIST changes: +AMOX1TAB15 PO; +BENZ1TAB96 PO
[2021-08-31] MEDS ORDERED: HALOPERIDOL 5 MG TABLET PO ONE (20:45)
[2021-08-31] MEDS ORDERED: LORazepam 1 MG TABLET PO ONE (20:45)
[2021-08-31 21:50] LABS: COVID AG,FIA SOURCE NASAL SWAB
[2021-08-31 21:52] LABS: BASOPHILS % (AUTO) 0.4 % (0.0-2.0); EOSINOPHILS % (AUTO) 3.8 % (1.0-6.0); HEMOGLOBIN 12.2 g/dL (12.0-16.0); LYMPHOCYTES # (AUTO) 1.4 K/uL (1.0-4.8); LYMPHOCYTES % (AUTO) 11.6 % (22.0-44.0); MEAN CORPUSCULAR HEMOGLOBIN 27.6 pg (26.0-34.0); MEAN CORPUSCULAR HGB CONC 32.2 G/dL (31.0-37.0); MEAN CORPUSCULAR VOLUME 86 fL (80-100); MONOCYTES # (AUTO) 0.6 K/uL (0.1-1.0); MONOCYTES % (AUTO) 4.7 % (2.0-9.0); NEUTROPHILS # (AUTO) 9.8 K/uL (1.8-7.7); NEUTROPHILS % (AUTO) 79.5 % (40.0-70.0); PLATELET COUNT (AUTO) 403 K/uL (150-450); RED BLOOD CELL COUNT(AUTO) 4.43 MIL/uL (4.00-5.20)
[2021-08-31 22:01] LABS: ANION GAP 4 mmol/L (8-16); CALCIUM, TOTAL 8.7 mg/dL (8.8-10.5); CARBON DIOXIDE 29 mmol/L (22-29); CHLORIDE 103 mmol/L (98-107); CREATININE 0.59 mg/dL (0.60-1.30); GLOMERULAR FILTR. RATE CALC > 60 mL/min (>60); GLUCOSE,RANDOM 108 mg/dL (70-110); SODIUM SERUM 136 mmol/L (136-145); UREA NITROGEN, BLOOD 24 mg/dL (7-18)
[2021-08-31 22:07] LABS: ALANINE AMINOTRANSFERASE 27 U/L (12-78); ALBUMIN 3.6 g/dL (3.4-5.0); ALKALINE PHOSPHATASE 72 U/L (46-116); ASPARTATE AMINOTRANSFERASE 16 U/L (15-37); BILIRUBIN,TOTAL 0.2 mg/dL (0.1-1.0)
[2021-08-31] MEDS ORDERED: ZOLPIDEM TARTRATE 10 MG TABLET PO PRN (22:15)
[2021-08-31 22:24] LABS: AMPHET/METH SCREEN,URINE NEGATIVE (NEGATIVE); BARBITURATE SCREEN, URINE NEGATIVE (NEGATIVE); BENZODIAZEPINES SCREEN,URINE NEGATIVE (NEGATIVE); CANNABINOID SCREEN,URINE NEGATIVE (NEGATIVE); COCAINE SCREEN,URINE NEGATIVE (NEGATIVE); METHADONE SCREEN, URINE NEGATIVE (NEGATIVE); OPIATE SCREEN,URINE NEGATIVE (NEGATIVE); PHENCYCLIDINE SCREEN,URINE NEGATIVE (NEGATIVE)
[2021-08-31 23:02] LABS: APPEARANCE,URINE CLEAR (CLEAR); BILIRUBIN,URINE NEGATIVE (NEGATIVE); GLUCOSE, URINE (UA) NEGATIVE (NEGATIVE); KETONES,URINE NEGATIVE (NEGATIVE); LEUKOCYTE ESTERASE ,URINE LARGE (NEGATIVE); NITRATE,URINE NEGATIVE (NEGATIVE); OCCULT BLOOD,URINE NEGATIVE (NEGATIVE); PROTEIN,URINE TRACE mg/dL (NEGATIVE); SPECIFIC GRAVITIY, URINE 1.021 (1.003-1.030); UROBILINOGEN,URINE <=1.0 mg/dL (<=1.0)
[2021-08-31 23:09] LABS: BACTERIA,URINE Moderate /HPF (None Seen)
[2021-08-31 23:10] LABS: SQUAMOUS EPITHELIAL CELL,UR Few /LPF (None Seen)
[2021-09-01 00:15] VITALS: BP 140/85
[2021-09-01 10:07] VITALS: BP 111/67
[2021-09-01 16:00] VITALS: BP 106/63
[2021-09-01] MEDS ORDERED: BACITRACIN 28 GM OINTMENT TP PRN (17:15)
[2021-09-01] MEDS ORDERED: PETROLATUM,WHITE 28 GM JELLY TP PRN (17:15)
[2021-09-01] MEDS ORDERED: BENZOCAINE/MENTHOL LOZENGE PO PRN (17:15)
[2021-09-01] MEDS ORDERED: DOCUSATE SODIUM 100 MG CAPSULE PO PRN (17:15)
[2021-09-01] MEDS ORDERED: LOPERAMIDE HCL 2 MG CAPSULE PO PRN (17:15)
[2021-09-01] MEDS ORDERED: MAGNESIUM HYDROXIDE SUSPENSION 30 ML UDCUP PO PRN (17:15)
[2021-09-01] MEDS ORDERED: ONDANSETRON HCL 4 MG TABLET PO PRN (17:15)
[2021-09-01] MEDS ORDERED: MAG HYDROX/AL HYDROX/SIMETH ES 30 ML SUSPENSION UDCUP PO PRN (17:15)
[2021-09-01] MEDS ORDERED: ALBUTEROL SULFATE HFA 90 MCG/PUFF 8 GM INHALER IH PRN (17:15)
[2021-09-01] MEDS ORDERED: OMEPRAZOLE 20 MG CAPSULE PO PRN (17:15)
[2021-09-01] MEDS ORDERED: IBUPROFEN 600 MG TABLET PO PRN (17:15)
[2021-09-01] MEDS ORDERED: ACETAMINOPHEN 325 MG TABLET PO PRN (17:15)
[2021-09-01] MEDS ORDERED: CloNIDine HCL 0.1 MG TABLET PO PRN (17:15)
[2021-09-01] MEDS: HALOPERIDOL 5 MG TABLET PO SCH (20:33)
[2021-09-01] MEDS: BENZTROPINE MESYLATE 2 MG TABLET PO SCH (20:33)
[2021-09-02 08:00] VITALS: BP 101/64
[2021-09-02] MEDS: CEPHALEXIN MONOHYDRATE 500 MG CAPSULE PO SCH ×2 (08:15→16:07)
[2021-09-02] MEDS: LORazepam 2 MG TABLET PO PRN ×2 (08:25→17:08)
[2021-09-02 17:04] VITALS: BP 110/64
[2021-09-02] MEDS: BENZTROPINE MESYLATE 2 MG TABLET PO SCH (20:13)
[2021-09-02] MEDS: HALOPERIDOL 5 MG TABLET PO SCH (20:14)
[2021-09-03] MEDS: CEPHALEXIN MONOHYDRATE 500 MG CAPSULE PO SCH ×2 (08:17→16:35)
[2021-09-03] MEDS: LORazepam 2 MG TABLET PO PRN ×2 (08:19→16:35)
[2021-09-03 10:32] VITALS: BP 99/59
[2021-09-03 16:33] VITALS: BP 124/81
[2021-09-03] MEDS: BENZTROPINE MESYLATE 2 MG TABLET PO SCH (20:16)
[2021-09-03] MEDS: HALOPERIDOL 5 MG TABLET PO SCH (20:16)
[2021-09-04] MEDS: LORazepam 2 MG TABLET PO PRN ×3 (01:20→16:13)
[2021-09-04] MEDS: CEPHALEXIN MONOHYDRATE 500 MG CAPSULE PO SCH ×2 (08:15→16:13)
[2021-09-04 10:19] VITALS: BP 101/62
[2021-09-04] MEDS: MUPIROCIN CALCIUM 2% 22 GM OINTMENT NASAL SCH ×2 (10:59→16:12)
[2021-09-04 16:00] VITALS: BP 103/62
[2021-09-04] MEDS: HALOPERIDOL 5 MG TABLET PO SCH (20:04)
[2021-09-04] MEDS: BENZTROPINE MESYLATE 2 MG TABLET PO SCH (20:04)
[2021-09-05 04:23] VITALS: BP 117/77
[2021-09-05] MEDS: CEPHALEXIN MONOHYDRATE 500 MG CAPSULE PO SCH ×2 (08:28→16:06)
[2021-09-05] MEDS: MUPIROCIN CALCIUM 2% 22 GM OINTMENT NASAL SCH ×2 (08:28→16:05)
[2021-09-05] MEDS: LORazepam 2 MG TABLET PO PRN (10:49)
[2021-09-05 16:25] VITALS: BP 111/74
[2021-09-05] MEDS: HALOPERIDOL 5 MG TABLET PO SCH (20:07)
[2021-09-05] MEDS: BENZTROPINE MESYLATE 2 MG TABLET PO SCH (20:08)
[2021-09-06] MEDS: CEPHALEXIN MONOHYDRATE 500 MG CAPSULE PO SCH ×2 (08:10→16:03)
[2021-09-06] MEDS: MUPIROCIN CALCIUM 2% 22 GM OINTMENT NASAL SCH ×2 (08:10→16:04)
[2021-09-06 08:54] VITALS: BP 104/60
[2021-09-06 10:25] LABS: COVID AG,FIA SOURCE NASOPHARYNGEAL
[2021-09-06] MEDS: LORazepam 2 MG TABLET PO PRN ×2 (13:50→19:05)
[2021-09-06 16:47] VITALS: BP 135/86
[2021-09-06] MEDS: BENZTROPINE MESYLATE 2 MG TABLET PO SCH (20:32)
[2021-09-06] MEDS: HALOPERIDOL 5 MG TABLET PO SCH (20:33)
[2021-09-07] MEDS: CEPHALEXIN MONOHYDRATE 500 MG CAPSULE PO SCH ×2 (08:16→16:13)
[2021-09-07] MEDS: MUPIROCIN CALCIUM 2% 22 GM OINTMENT NASAL SCH ×2 (08:16→16:12)
[2021-09-07 09:43] VITALS: BP 106/57
[2021-09-07 16:00] VITALS: BP_SYST 101; BP_SYST 131; BP_DIAS 50; BP_DIAS 56
[2021-09-07] MEDS: LORazepam 2 MG TABLET PO PRN (16:13)
[2021-09-07] MEDS: BENZTROPINE MESYLATE 2 MG TABLET PO SCH (20:17)
[2021-09-07] MEDS: HALOPERIDOL 5 MG TABLET PO SCH (20:17)
[2021-09-08 08:00] VITALS: BP 94/56
[2021-09-08] MEDS: CEPHALEXIN MONOHYDRATE 500 MG CAPSULE PO SCH (08:18)
[2021-09-08] MEDS: MUPIROCIN CALCIUM 2% 22 GM OINTMENT NASAL SCH ×2 (08:18→16:48)
[2021-09-08 16:45] VITALS: BP 123/82
[2021-09-08] MEDS: NITROFURANTOIN MONOHYD/M-CRYST 100 MG CAPSULE [MACROBID] PO SCH (16:48)
[2021-09-08] MEDS: BENZTROPINE MESYLATE 2 MG TABLET PO SCH (21:08)
[2021-09-08] MEDS: HALOPERIDOL 5 MG TABLET PO SCH (21:09)
[2021-09-08 23:07] VITALS: BP 116/75
[2021-09-08] MEDS: LORazepam 1 MG TABLET PO PRN (23:07)
[2021-09-09 08:00] VITALS: BP 115/70
[2021-09-09] MEDS: NITROFURANTOIN MONOHYD/M-CRYST 100 MG CAPSULE [MACROBID] PO SCH ×2 (08:36→16:02)
[2021-09-09] MEDS: MUPIROCIN CALCIUM 2% 22 GM OINTMENT NASAL SCH (08:37)
[2021-09-09 17:11] VITALS: BP 101/64
[2021-09-09] MEDS: HALOPERIDOL 5 MG TABLET PO SCH (20:04)
[2021-09-09] MEDS: BENZTROPINE MESYLATE 2 MG TABLET PO SCH (20:04)
[2021-09-10] MEDS: NITROFURANTOIN MONOHYD/M-CRYST 100 MG CAPSULE [MACROBID] PO SCH ×2 (08:12→17:02)
[2021-09-10] MEDS: LORazepam 1 MG TABLET PO PRN (19:00)
[2021-09-10] MEDS: HALOPERIDOL 5 MG TABLET PO SCH (20:01)
[2021-09-10] MEDS: BENZTROPINE MESYLATE 2 MG TABLET PO SCH (20:01)
[2021-09-11 08:04] VITALS: BP 101/54
[2021-09-11] MEDS: NITROFURANTOIN MONOHYD/M-CRYST 100 MG CAPSULE [MACROBID] PO SCH ×2 (08:54→16:44)
[2021-09-11 16:31] VITALS: BP 123/74
[2021-09-11] MEDS: HALOPERIDOL 5 MG TABLET PO PRN (16:44)
[2021-09-11] MEDS: LORazepam 1 MG TABLET PO PRN (19:00)
[2021-09-11] MEDS: BENZTROPINE MESYLATE 2 MG TABLET PO SCH (20:29)
[2021-09-11] MEDS: HALOPERIDOL 5 MG TABLET PO SCH (20:29)
[2021-09-12 08:02] VITALS: BP 99/60
[2021-09-12] MEDS: NITROFURANTOIN MONOHYD/M-CRYST 100 MG CAPSULE [MACROBID] PO SCH ×2 (08:36→16:10)
[2021-09-12 16:00] VITALS: BP 115/75
[2021-09-12] MEDS: HALOPERIDOL 5 MG TABLET PO SCH (20:25)
[2021-09-12] MEDS: BENZTROPINE MESYLATE 2 MG TABLET PO SCH (20:25)
[2021-09-13 00:05] VITALS: BP 118/72
[2021-09-13] MEDS: LORazepam 1 MG TABLET PO PRN (00:08)
[2021-09-13 08:00] VITALS: BP 99/61
[2021-09-13] MEDS: NITROFURANTOIN MONOHYD/M-CRYST 100 MG CAPSULE [MACROBID] PO SCH ×2 (08:31→16:12)
[2021-09-13 11:51] LABS: COVID AG,FIA SOURCE NASAL SWAB
[2021-09-13 16:45] VITALS: BP 130/78
[2021-09-13] MEDS: BENZTROPINE MESYLATE 2 MG TABLET PO SCH (20:15)
[2021-09-13] MEDS: HALOPERIDOL 5 MG TABLET PO SCH (20:15)
[2021-09-14 08:00] VITALS: BP 116/66
[2021-09-14] MEDS: NITROFURANTOIN MONOHYD/M-CRYST 100 MG CAPSULE [MACROBID] PO SCH ×2 (09:14→17:11)
[2021-09-14 16:48] VITALS: BP 110/63
[2021-09-14] MEDS: HALOPERIDOL 5 MG TABLET PO PRN (17:12)
[2021-09-14] MEDS: LORazepam 1 MG TABLET PO PRN (19:30)
[2021-09-14] MEDS: BENZTROPINE MESYLATE 2 MG TABLET PO SCH (20:30)
[2021-09-14] MEDS: HALOPERIDOL 5 MG TABLET PO SCH (20:30)
[2021-09-15 08:00] VITALS: BP 110/64
[2021-09-15] MEDS: NITROFURANTOIN MONOHYD/M-CRYST 100 MG CAPSULE [MACROBID] PO SCH (08:24)
[2021-09-15] MEDS: HALOPERIDOL 5 MG TABLET PO PRN (16:30)
[2021-09-15] MEDS ORDERED: HALO5TAB2 PO (16:33)
[2021-09-15 16:36] VITALS: BP 124/78
[2021-09-15] MEDS: LORazepam 1 MG TABLET PO PRN (19:42)
[2021-09-15] MEDS: HALOPERIDOL 5 MG TABLET PO SCH (20:31)
[2021-09-15] MEDS: BENZTROPINE MESYLATE 2 MG TABLET PO SCH (21:09)
[2021-09-16 09:02] VITALS: BP 106/66
== END 2021-09-16 11:10 | disposition home or self-care (01) | DRG 750 ==
LOC: EMS 18:30 → 3EI 09-01 00:36
PROVIDERS: ADMIT Psychiatry & Neurology Psychiatry; ATTEND Psychiatry & Neurology Psychiatry
DX: F25.9 Schizoaffective disorder, unspecified (principal); F17.210 Nicotine dependence, cigarettes, uncomplicated; F32.A Depression, unspecified; F41.9 Anxiety disorder, unspecified; G47.00 Insomnia, unspecified; J45.909 Unspecified asthma, uncomplicated; N39.0 Urinary tract infection, site not specified; Z20.822 Contact with and (suspected) exposure to COVID-19; Z71.6 Tobacco abuse counseling
CPT/HCPCS: 80053; 81001; 85025; 87081; 87086; 99285; G0480

== ENCOUNTER 2021-11-23 15:39 | Inpatient (IN) | payer MEDICAID, OTHER ==
[~2021-11-23] VITALS: Ht 162.6 cm; Wt 87.0 kg
[~2021-11-23 15:39] MED LIST changes: -AMOX1TAB15 PO; -BENZ1TAB96 PO
[2021-11-23] MEDS ORDERED: HALOPERIDOL LACTATE 5 MG/ML VIAL IM ONE (16:30)
[2021-11-23] MEDS ORDERED: DiphenhydrAMINE HCL 50 MG/ML VIAL IM ONE (16:30)
[2021-11-23] MEDS ORDERED: LORazepam 2 MG/ML VIAL IM ONE (16:30)
[2021-11-23 17:25] LABS: COVID AG,FIA SOURCE NASOPHARYNGEAL
[2021-11-23 20:06] LABS: BASOPHILS % (AUTO) 0.3 % (0.0-2.0); EOSINOPHILS % (AUTO) 7.1 % (1.0-6.0); HEMATOCRIT 32.3 % (36-46); HEMOGLOBIN 10.8 g/dL (12.0-16.0); LYMPHOCYTES # (AUTO) 1.7 K/uL (1.0-4.8); LYMPHOCYTES % (AUTO) 19.4 % (22.0-44.0); MEAN CORPUSCULAR HEMOGLOBIN 28.6 pg (26.0-34.0); MEAN CORPUSCULAR HGB CONC 33.4 G/dL (31.0-37.0); MEAN CORPUSCULAR VOLUME 86 fL (80-100); MONOCYTES # (AUTO) 0.9 K/uL (0.1-1.0); MONOCYTES % (AUTO) 9.6 % (2.0-9.0); NEUTROPHILS # (AUTO) 5.7 K/uL (1.8-7.7); NEUTROPHILS % (AUTO) 63.6 % (40.0-70.0); PLATELET COUNT (AUTO) 268 K/uL (150-450); RED BLOOD CELL COUNT(AUTO) 3.78 MIL/uL (4.00-5.20); RED CELL DISTRIBUTION WIDTH 15.5 % (11.5-14.5)
[2021-11-23 20:13] LABS: ANION GAP 5 mmol/L (8-16); CALCIUM, TOTAL 8.4 mg/dL (8.8-10.5); CARBON DIOXIDE 27 mmol/L (22-29); CHLORIDE 107 mmol/L (98-107); CREATININE 0.59 mg/dL (0.60-1.30); GLUCOSE,RANDOM 97 mg/dL (70-110); SODIUM SERUM 139 mmol/L (136-145); UREA NITROGEN, BLOOD 18 mg/dL (7-18)
[2021-11-23 20:14] LABS: GLOMERULAR FILTR. RATE CALC > 60 mL/min (>60)
[2021-11-23 20:22] LABS: ALANINE AMINOTRANSFERASE 20 U/L (12-78); ALBUMIN 2.9 g/dL (3.4-5.0); ALKALINE PHOSPHATASE 51 U/L (46-116); ASPARTATE AMINOTRANSFERASE 11 U/L (15-37); BILIRUBIN,TOTAL 0.2 mg/dL (0.1-1.0); HCG,QUANTITATIVE < 1 mIU/mL (0-6); TOTAL PROTEIN, SERUM 5.9 g/dL (6.4-8.2)
[2021-11-23] MEDS ORDERED: ACETAMINOPHEN 325 MG TABLET PO PRN (22:00)
[2021-11-23] MEDS ORDERED: BENZOCAINE/MENTHOL LOZENGE PO PRN (22:00)
[2021-11-23] MEDS ORDERED: BACITRACIN 28 GM OINTMENT TP PRN (22:00)
[2021-11-23] MEDS ORDERED: LOPERAMIDE HCL 2 MG CAPSULE PO PRN (22:00)
[2021-11-23] MEDS ORDERED: ONDANSETRON HCL 4 MG TABLET PO PRN (22:00)
[2021-11-23] MEDS ORDERED: ALBUTEROL SULFATE HFA 90 MCG/PUFF 8 GM INHALER IH PRN (22:00)
[2021-11-23] MEDS ORDERED: MAG HYDROX/AL HYDROX/SIMETH ES 30 ML SUSPENSION UDCUP PO PRN (22:00)
[2021-11-23] MEDS ORDERED: CloNIDine HCL 0.1 MG TABLET PO PRN (22:00)
[2021-11-23] MEDS ORDERED: PETROLATUM,WHITE 28 GM JELLY TP PRN (22:00)
[2021-11-23] MEDS ORDERED: MAGNESIUM HYDROXIDE SUSPENSION 30 ML UDCUP PO PRN (22:00)
[2021-11-24 00:26] VITALS: BP 100/65
[2021-11-24] MEDS: ZOLPIDEM TARTRATE 10 MG TABLET PO PRN (00:26)
[2021-11-24 08:00] VITALS: BP 118/66
[2021-11-24] MEDS: OMEPRAZOLE 20 MG CAPSULE PO SCH (09:00)
[2021-11-24] MEDS: DOCUSATE SODIUM 100 MG CAPSULE PO SCH (09:00)
[2021-11-24] MEDS: HALOPERIDOL 5 MG TABLET PO SCH (20:13)
[2021-11-24] MEDS: BENZTROPINE MESYLATE 2 MG TABLET PO SCH (20:13)
[2021-11-25] MEDS: ZOLPIDEM TARTRATE 10 MG TABLET PO PRN (01:55)
[2021-11-25] MEDS: DOCUSATE SODIUM 100 MG CAPSULE PO SCH (09:00)
[2021-11-25] MEDS: OMEPRAZOLE 20 MG CAPSULE PO SCH (09:00)
[2021-11-25 13:45] VITALS: BP 104/58
[2021-11-25] MEDS: HALOPERIDOL 5 MG TABLET PO SCH (20:18)
[2021-11-25] MEDS: BENZTROPINE MESYLATE 2 MG TABLET PO SCH (20:18)
[2021-11-25 23:13] VITALS: BP 115/68
[2021-11-26] MEDS: OMEPRAZOLE 20 MG CAPSULE PO SCH (09:18)
[2021-11-26] MEDS: DOCUSATE SODIUM 100 MG CAPSULE PO SCH (09:18)
[2021-11-26] MEDS: BENZTROPINE MESYLATE 2 MG TABLET PO SCH (20:42)
[2021-11-26] MEDS: HALOPERIDOL 5 MG TABLET PO SCH (20:42)
[2021-11-27 08:00] VITALS: BP 95/58
[2021-11-27] MEDS: LORazepam 2 MG TABLET PO PRN ×2 (08:07→15:43)
[2021-11-27] MEDS: OMEPRAZOLE 20 MG CAPSULE PO SCH (08:07)
[2021-11-27] MEDS: DOCUSATE SODIUM 100 MG CAPSULE PO SCH (08:07)
[2021-11-27] MEDS: HALOPERIDOL 5 MG TABLET PO SCH (20:24)
[2021-11-27] MEDS: BENZTROPINE MESYLATE 2 MG TABLET PO SCH (20:24)
[2021-11-28 08:00] VITALS: BP 107/62
[2021-11-28] MEDS: OMEPRAZOLE 20 MG CAPSULE PO SCH (08:11)
[2021-11-28] MEDS: LORazepam 2 MG TABLET PO PRN ×2 (08:12→16:39)
[2021-11-28] MEDS: HALOPERIDOL 5 MG TABLET PO PRN (08:12)
[2021-11-28] MEDS: DOCUSATE SODIUM 100 MG CAPSULE PO SCH (08:12)
[2021-11-28 16:06] VITALS: BP 132/84
[2021-11-28] MEDS: BENZTROPINE MESYLATE 2 MG TABLET PO SCH (20:44)
[2021-11-28] MEDS: HALOPERIDOL 5 MG TABLET PO SCH (20:44)
[2021-11-29] MEDS: ZOLPIDEM TARTRATE 10 MG TABLET PO PRN (00:57)
[2021-11-29] MEDS: LORazepam 2 MG TABLET PO PRN ×2 (00:57→18:15)
[2021-11-29 06:37] LABS: COVID AG,FIA SOURCE NASAL SWAB
[2021-11-29] MEDS: OMEPRAZOLE 20 MG CAPSULE PO SCH (08:04)
[2021-11-29] MEDS: DOCUSATE SODIUM 100 MG CAPSULE PO SCH (08:04)
[2021-11-29 08:22] VITALS: BP 98/45
[2021-11-29 16:20] VITALS: BP 107/81
[2021-11-29 20:23] VITALS: BP 101/78
[2021-11-29] MEDS: BENZTROPINE MESYLATE 2 MG TABLET PO SCH (20:25)
[2021-11-29] MEDS: HALOPERIDOL 5 MG TABLET PO SCH (20:25)
[2021-11-30] MEDS: ZOLPIDEM TARTRATE 10 MG TABLET PO PRN ×2 (01:56→21:36)
[2021-11-30 08:11] VITALS: BP 103/60
[2021-11-30] MEDS: OMEPRAZOLE 20 MG CAPSULE PO SCH (09:40)
[2021-11-30] MEDS: DOCUSATE SODIUM 100 MG CAPSULE PO SCH (09:40)
[2021-11-30 16:06] VITALS: BP 121/64
[2021-11-30] MEDS: LORazepam 2 MG TABLET PO PRN ×2 (18:00→23:42)
[2021-11-30] MEDS: HALOPERIDOL 5 MG TABLET PO SCH (20:05)
[2021-11-30] MEDS: BENZTROPINE MESYLATE 2 MG TABLET PO SCH (20:05)
[2021-11-30 20:15] VITALS: BP 125/68
[2021-11-30] MEDS: HALOPERIDOL 5 MG TABLET PO PRN (23:42)
[2021-12-01 08:11] VITALS: BP 105/71
[2021-12-01] MEDS: OMEPRAZOLE 20 MG CAPSULE PO SCH (08:36)
[2021-12-01] MEDS: DOCUSATE SODIUM 100 MG CAPSULE PO SCH (08:36)
[2021-12-01] MEDS: LORazepam 2 MG TABLET PO PRN ×3 (08:36→16:45)
[2021-12-01] MEDS: HALOPERIDOL 5 MG TABLET PO PRN ×2 (08:39→16:45)
[2021-12-01 16:46] VITALS: BP 117/78
[2021-12-01 16:48] VITALS: BP 117/18
[2021-12-01] MEDS: HALOPERIDOL 5 MG TABLET PO SCH (20:22)
[2021-12-01] MEDS: BENZTROPINE MESYLATE 2 MG TABLET PO SCH (20:22)
[2021-12-01 20:26] VITALS: BP 114/74
[2021-12-02] MEDS: LORazepam 2 MG TABLET PO PRN ×2 (00:26→16:57)
[2021-12-02] MEDS: ZOLPIDEM TARTRATE 10 MG TABLET PO PRN (00:26)
[2021-12-02 06:26] LABS: BASOPHILS % (AUTO) 0.5 % (0.0-2.0); EOSINOPHILS % (AUTO) 8.9 % (1.0-6.0); HEMATOCRIT 37.2 % (36-46); HEMOGLOBIN 12.3 g/dL (12.0-16.0); LYMPHOCYTES # (AUTO) 1.7 K/uL (1.0-4.8); LYMPHOCYTES % (AUTO) 20.3 % (22.0-44.0); MEAN CORPUSCULAR HEMOGLOBIN 28.7 pg (26.0-34.0); MEAN CORPUSCULAR HGB CONC 33.1 G/dL (31.0-37.0); MEAN CORPUSCULAR VOLUME 87 fL (80-100); MONOCYTES # (AUTO) 0.8 K/uL (0.1-1.0); MONOCYTES % (AUTO) 10.2 % (2.0-9.0); NEUTROPHILS # (AUTO) 4.9 K/uL (1.8-7.7); NEUTROPHILS % (AUTO) 60.1 % (40.0-70.0); PLATELET COUNT (AUTO) 297 K/uL (150-450); RED BLOOD CELL COUNT(AUTO) 4.28 MIL/uL (4.00-5.20); RED CELL DISTRIBUTION WIDTH 16.6 % (11.5-14.5)
[2021-12-02 08:00] VITALS: BP 113/60
[2021-12-02] MEDS: DOCUSATE SODIUM 100 MG CAPSULE PO SCH (09:08)
[2021-12-02] MEDS: OMEPRAZOLE 20 MG CAPSULE PO SCH (09:08)
[2021-12-02 16:43] VITALS: BP 110/65
[2021-12-02] MEDS: HALOPERIDOL 5 MG TABLET PO SCH (20:27)
[2021-12-02] MEDS: BENZTROPINE MESYLATE 2 MG TABLET PO SCH (20:27)
[2021-12-02 20:32] VITALS: BP 115/68
[2021-12-03] MEDS: ZOLPIDEM TARTRATE 10 MG TABLET PO PRN (00:32)
[2021-12-03] MEDS: LORazepam 2 MG TABLET PO PRN ×2 (00:32→16:44)
[2021-12-03] MEDS: DOCUSATE SODIUM 100 MG CAPSULE PO SCH (08:15)
[2021-12-03] MEDS: OMEPRAZOLE 20 MG CAPSULE PO SCH (08:15)
[2021-12-03 08:37] VITALS: BP 141/82
[2021-12-03 16:16] VITALS: BP 105/67
[2021-12-03] MEDS: HALOPERIDOL 5 MG TABLET PO SCH (20:05)
[2021-12-03] MEDS: BENZTROPINE MESYLATE 2 MG TABLET PO SCH (20:05)
[2021-12-04] MEDS: HALOPERIDOL 5 MG TABLET PO PRN ×3 (01:39→12:58)
[2021-12-04 08:23] VITALS: BP 107/78
[2021-12-04] MEDS: OMEPRAZOLE 20 MG CAPSULE PO SCH (08:50)
[2021-12-04] MEDS: DOCUSATE SODIUM 100 MG CAPSULE PO SCH (08:50)
[2021-12-04 16:04] VITALS: BP 153/99
[2021-12-04] MEDS: HALOPERIDOL 5 MG TABLET PO SCH (20:31)
[2021-12-04] MEDS: BENZTROPINE MESYLATE 2 MG TABLET PO SCH (20:31)
[2021-12-05] MEDS: HALOPERIDOL 5 MG TABLET PO PRN ×3 (02:32→15:56)
[2021-12-05] MEDS: OMEPRAZOLE 20 MG CAPSULE PO SCH (07:43)
[2021-12-05] MEDS: DOCUSATE SODIUM 100 MG CAPSULE PO SCH (07:43)
[2021-12-05 08:15] VITALS: BP 110/57
[2021-12-05 16:17] VITALS: BP 110/84
[2021-12-05] MEDS: HALOPERIDOL 5 MG TABLET PO SCH (20:12)
[2021-12-05] MEDS: BENZTROPINE MESYLATE 2 MG TABLET PO SCH (20:12)
[2021-12-06 07:10] LABS: COVID AG,FIA SOURCE NASAL SWAB
[2021-12-06] MEDS: OMEPRAZOLE 20 MG CAPSULE PO SCH (07:57)
[2021-12-06] MEDS: DOCUSATE SODIUM 100 MG CAPSULE PO SCH (07:57)
[2021-12-06] MEDS: HALOPERIDOL 5 MG TABLET PO PRN ×2 (07:58→15:49)
[2021-12-06 08:16] VITALS: BP 97/60
[2021-12-06] MEDS: IBUPROFEN 600 MG TABLET PO PRN (11:00)
[2021-12-06 16:07] VITALS: BP 109/69
[2021-12-06] MEDS: HALOPERIDOL 5 MG TABLET PO SCH (20:16)
[2021-12-06] MEDS: BENZTROPINE MESYLATE 2 MG TABLET PO SCH (20:16)
[2021-12-07 09:03] VITALS: BP 112/65
[2021-12-07] MEDS: OMEPRAZOLE 20 MG CAPSULE PO SCH (09:26)
[2021-12-07] MEDS: HALOPERIDOL 5 MG TABLET PO PRN ×2 (09:26→15:51)
[2021-12-07] MEDS: DOCUSATE SODIUM 100 MG CAPSULE PO SCH (09:26)
[2021-12-07 16:08] VITALS: BP 11/74
[2021-12-07] MEDS: HALOPERIDOL 5 MG TABLET PO SCH (20:20)
[2021-12-07] MEDS: BENZTROPINE MESYLATE 2 MG TABLET PO SCH (20:20)
[2021-12-08 09:27] VITALS: BP 105/64
[2021-12-08] MEDS: DOCUSATE SODIUM 100 MG CAPSULE PO SCH (10:16)
[2021-12-08] MEDS: OMEPRAZOLE 20 MG CAPSULE PO SCH (10:16)
[2021-12-08 16:09] VITALS: BP 105/75
[2021-12-08 20:18] VITALS: BP 109/81
[2021-12-08] MEDS: BENZTROPINE MESYLATE 2 MG TABLET PO SCH (20:19)
[2021-12-08] MEDS: HALOPERIDOL 5 MG TABLET PO SCH (20:20)
[2021-12-09 08:00] VITALS: BP 89/50
[2021-12-09] MEDS: OMEPRAZOLE 20 MG CAPSULE PO SCH (09:35)
[2021-12-09] MEDS: HALOPERIDOL 5 MG TABLET PO PRN (09:36)
[2021-12-09] MEDS: DOCUSATE SODIUM 100 MG CAPSULE PO SCH (09:36)
[2021-12-09 16:12] VITALS: BP 117/71
[2021-12-09] MEDS: HALOPERIDOL 5 MG TABLET PO SCH (20:07)
[2021-12-09] MEDS: BENZTROPINE MESYLATE 2 MG TABLET PO SCH (20:07)
[2021-12-10] MEDS: OMEPRAZOLE 20 MG CAPSULE PO SCH (07:37)
[2021-12-10] MEDS: DOCUSATE SODIUM 100 MG CAPSULE PO SCH (07:38)
[2021-12-10] MEDS: HALOPERIDOL 5 MG TABLET PO PRN (07:38)
[2021-12-10 08:06] VITALS: BP 108/66
[2021-12-10 16:23] VITALS: BP 114/67
[2021-12-10] MEDS: BENZTROPINE MESYLATE 2 MG TABLET PO SCH (20:40)
[2021-12-10] MEDS: HALOPERIDOL 5 MG TABLET PO SCH (20:45)
[2021-12-11] MEDS: DOCUSATE SODIUM 100 MG CAPSULE PO SCH (08:02)
[2021-12-11] MEDS: HALOPERIDOL 5 MG TABLET PO PRN (08:02)
[2021-12-11] MEDS: OMEPRAZOLE 20 MG CAPSULE PO SCH (08:02)
[2021-12-11 09:17] VITALS: BP 83/61
[2021-12-11 16:14] VITALS: BP 107/71
[2021-12-11 20:13] VITALS: BP 106/81
[2021-12-11] MEDS: HALOPERIDOL 5 MG TABLET PO SCH (20:31)
[2021-12-11] MEDS: BENZTROPINE MESYLATE 2 MG TABLET PO SCH (20:31)
[2021-12-12] MEDS: OMEPRAZOLE 20 MG CAPSULE PO SCH (08:04)
[2021-12-12] MEDS: HALOPERIDOL 5 MG TABLET PO PRN (08:04)
[2021-12-12] MEDS: DOCUSATE SODIUM 100 MG CAPSULE PO SCH (08:04)
[2021-12-12 16:49] VITALS: BP 115/74
[2021-12-12] MEDS: BENZTROPINE MESYLATE 2 MG TABLET PO SCH (20:03)
[2021-12-12] MEDS: HALOPERIDOL 5 MG TABLET PO SCH (20:03)
[2021-12-13 07:09] LABS: COVID AG,FIA SOURCE NASAL SWAB
[2021-12-13 08:16] VITALS: BP 100/64
[2021-12-13] MEDS: OMEPRAZOLE 20 MG CAPSULE PO SCH (11:43)
[2021-12-13] MEDS: HALOPERIDOL 5 MG TABLET PO PRN (11:43)
[2021-12-13] MEDS: DOCUSATE SODIUM 100 MG CAPSULE PO SCH (11:44)
[2021-12-13 16:00] VITALS: BP 108/64
[2021-12-13] MEDS: BENZTROPINE MESYLATE 2 MG TABLET PO SCH (20:08)
[2021-12-13] MEDS: HALOPERIDOL 5 MG TABLET PO SCH (20:08)
[2021-12-14 08:18] VITALS: BP 111/65
[2021-12-14] MEDS: DOCUSATE SODIUM 100 MG CAPSULE PO SCH (08:33)
[2021-12-14] MEDS: OMEPRAZOLE 20 MG CAPSULE PO SCH (08:33)
[2021-12-14] MEDS: HALOPERIDOL 5 MG TABLET PO PRN ×3 (08:33→23:59)
[2021-12-14 16:42] VITALS: BP 116/69
[2021-12-14] MEDS: HALOPERIDOL 5 MG TABLET PO SCH (20:50)
[2021-12-14] MEDS: BENZTROPINE MESYLATE 2 MG TABLET PO SCH (20:50)
[2021-12-15 00:02] VITALS: BP 110/69
[2021-12-15] MEDS: HALOPERIDOL 5 MG TABLET PO PRN ×2 (05:28→09:19)
[2021-12-15 07:13] LABS: HEMATOCRIT 37.5 % (36-46); HEMOGLOBIN 12.5 g/dL (12.0-16.0); MEAN CORPUSCULAR HGB CONC 33.3 G/dL (31.0-37.0); MEAN CORPUSCULAR VOLUME 87 fL (80-100); PLATELET COUNT (AUTO) 286 K/uL (150-450); RED BLOOD CELL COUNT(AUTO) 4.31 MIL/uL (4.00-5.20); RED CELL DISTRIBUTION WIDTH 16.2 % (11.5-14.5)
[2021-12-15 07:28] LABS: ANION GAP 9 mmol/L (8-16); CALCIUM, TOTAL 8.4 mg/dL (8.8-10.5); CARBON DIOXIDE 21 mmol/L (22-29); CHLORIDE 95 mmol/L (98-107); CREATININE 0.45 mg/dL (0.60-1.30); GLUCOSE,RANDOM 112 mg/dL (70-110); PHOSPHORUS 3.7 mg/dL (2.5-4.9); SODIUM SERUM 125 mmol/L (136-145); UREA NITROGEN, BLOOD 13 mg/dL (7-18)
[2021-12-15 07:38] LABS: BAND NEUTROPHILS % (MANUAL) 2 % (0-5); EOSINOPHILS % (MANUAL) 3 % (1-6); LYMPHOCYTES % (MANUAL) 10 % (22-44); MONOCYTES % (MANUAL) 2 % (2-9); SEGMENTED NEUTROPHILS % 83 % (40-70)
[2021-12-15 07:41] LABS: GLOMERULAR FILTR. RATE CALC > 60 mL/min (>60)
[2021-12-15 08:00] VITALS: BP 142/101
[2021-12-15] MEDS: DOCUSATE SODIUM 100 MG CAPSULE PO SCH (09:19)
[2021-12-15] MEDS: OMEPRAZOLE 20 MG CAPSULE PO SCH (09:19)
[2021-12-15] MEDS: IBUPROFEN 600 MG TABLET PO PRN (13:05)
[2021-12-15 14:11] LABS: APPEARANCE,URINE CLEAR (CLEAR); BILIRUBIN,URINE NEGATIVE (NEGATIVE); GLUCOSE, URINE (UA) NEGATIVE (NEGATIVE); KETONES,URINE NEGATIVE (NEGATIVE); LEUKOCYTE ESTERASE ,URINE NEGATIVE (NEGATIVE); NITRATE,URINE NEGATIVE (NEGATIVE); OCCULT BLOOD,URINE TRACE (NEGATIVE); PH,URINE 6.5 (5.0-8.0); PROTEIN,URINE NEGATIVE (NEGATIVE); SPECIFIC GRAVITIY, URINE 1.002 (1.003-1.030); UROBILINOGEN,URINE <=1.0 mg/dL (<=1.0)
[2021-12-15 14:25] LABS: BACTERIA,URINE None Seen /HPF (None Seen); RBC,URINE 0-2 /HPF (0-2); SQUAMOUS EPITHELIAL CELL,UR Few /LPF (None Seen); WBC,URINE 0-2 /HPF (0-5)
[2021-12-15 14:52] LABS: AMPHET/METH SCREEN,URINE NEGATIVE (NEGATIVE); BARBITURATE SCREEN, URINE NEGATIVE (NEGATIVE); BENZODIAZEPINES SCREEN,URINE NEGATIVE (NEGATIVE); CANNABINOID SCREEN,URINE NEGATIVE (NEGATIVE); COCAINE SCREEN,URINE NEGATIVE (NEGATIVE); METHADONE SCREEN, URINE NEGATIVE (NEGATIVE); OPIATE SCREEN,URINE NEGATIVE (NEGATIVE)
[2021-12-15 14:55] LABS: PHENCYCLIDINE SCREEN,URINE NEGATIVE (NEGATIVE)
[2021-12-15] MEDS: SODIUM CHLORIDE 1 GM TABLET PO SCH ×2 (14:57→17:15)
[2021-12-15 16:08] VITALS: BP 130/76
[2021-12-15 20:12] VITALS: BP 116/68
[2021-12-15] MEDS: BENZTROPINE MESYLATE 2 MG TABLET PO SCH (21:34)
[2021-12-15] MEDS: LURASIDONE HCL 80 MG TABLET PO SCH (21:35)
[2021-12-16 08:43] VITALS: BP 103/59
[2021-12-16] MEDS: DOCUSATE SODIUM 100 MG CAPSULE PO SCH (08:58)
[2021-12-16] MEDS: SODIUM CHLORIDE 1 GM TABLET PO SCH ×3 (08:58→17:10)
[2021-12-16] MEDS: OMEPRAZOLE 20 MG CAPSULE PO SCH (08:58)
[2021-12-16 16:10] VITALS: BP 116/79
[2021-12-16] MEDS: BENZTROPINE MESYLATE 2 MG TABLET PO SCH (20:07)
[2021-12-16] MEDS: LURASIDONE HCL 80 MG TABLET PO SCH (20:07)
[2021-12-17 09:05] VITALS: BP 105/54
[2021-12-17] MEDS: SODIUM CHLORIDE 1 GM TABLET PO SCH ×3 (09:17→17:35)
[2021-12-17] MEDS: OMEPRAZOLE 20 MG CAPSULE PO SCH (09:17)
[2021-12-17] MEDS: DOCUSATE SODIUM 100 MG CAPSULE PO SCH (09:17)
[2021-12-17 16:08] VITALS: BP 104/67
[2021-12-17] MEDS: LURASIDONE HCL 80 MG TABLET PO SCH (20:42)
[2021-12-17] MEDS: BENZTROPINE MESYLATE 2 MG TABLET PO SCH (20:42)
[2021-12-18] MEDS: OMEPRAZOLE 20 MG CAPSULE PO SCH (10:11)
[2021-12-18] MEDS: DOCUSATE SODIUM 100 MG CAPSULE PO SCH (10:11)
[2021-12-18] MEDS: SODIUM CHLORIDE 1 GM TABLET PO SCH ×3 (10:12→16:17)
[2021-12-18 16:03] VITALS: BP 107/75
[2021-12-18] MEDS: BENZTROPINE MESYLATE 2 MG TABLET PO SCH (20:10)
[2021-12-18] MEDS: LURASIDONE HCL 80 MG TABLET PO SCH (20:11)
[2021-12-19] MEDS: OMEPRAZOLE 20 MG CAPSULE PO SCH (08:52)
[2021-12-19] MEDS: SODIUM CHLORIDE 1 GM TABLET PO SCH ×3 (08:52→16:55)
[2021-12-19] MEDS: DOCUSATE SODIUM 100 MG CAPSULE PO SCH (08:53)
[2021-12-19 08:56] VITALS: BP 121/84
[2021-12-19] MEDS ORDERED: LURA80TA2 PO (12:07)
[2021-12-19 16:08] VITALS: BP 112/66
== END 2021-12-19 18:10 | disposition home or self-care (01) | DRG 750 ==
LOC: EMS 15:42 → UNDOADMIN 18:35 → 3EC 18:35
PROVIDERS: ADMIT Psychiatry & Neurology Psychiatry; ATTEND Psychiatry & Neurology Psychiatry
DX: F25.9 Schizoaffective disorder, unspecified (principal); D64.9 Anemia, unspecified; Z20.822 Contact with and (suspected) exposure to COVID-19; F32.A Depression, unspecified; F41.9 Anxiety disorder, unspecified; G47.00 Insomnia, unspecified; J45.909 Unspecified asthma, uncomplicated; Z91.14 Patient's other noncompliance with medication regimen; Z72.0 Tobacco use; Z71.6 Tobacco abuse counseling
CPT/HCPCS: 80048; 80053; 81001; 83735; 84100; 84295; 84702; 85007; 85025; 85027; 87081; 99285; G0480; J1200; J1630; J2060; Q0162